=== PATIENT | female | born 1950 | race Caucasian/White ===

== ENCOUNTER 2023-02-06 15:54 | Inpatient (IN) ==
[2023-02-06] MEDS ORDERED: SODIUM CHLORIDE 0.9% 1000ML 1,000 ML IV STA (16:08)
[2023-02-06] MEDS ORDERED: METOPROLOL TARTRATE 25 MG TAB PO STA (16:24)
--- NOTE | 2023-02-06 16:30 | Emergency Department Note ---
Impression & Plan Hypertension, Acute pancreatitis, Erythema migrans (Lyme disease) ED Provider Note INFORMANT: Patient ED PROVIDER(S): Stevie Liriano MD CHIEF COMPLAINT: Illness PLAN: Disposition: Admitted Condition: Good Outpatient prescription management: none Referral: None MEDICAL DECISION MAKING: Patient presented because of complaints of illness. She had fever at the store but that has resolved. She has developed a bull's-eye rash in the right lateral abdomen. A work-up was initiated. She did have some lower abdominal discomfort on examination. She was concerned due to history of pancreatitis. Blood work and imaging ordered. Patient was hydrated. She was given her afternoon metoprolol dose as her blood pressure was high. Patient's blood pressure did improve although it did increase again she was given IV hydralazine. She was treated with IV Rocephin. Her blood work was concerning for a mild leukocytosis as well as an elevated lipase consistent with pancreatitis. CT imaging was performed and revealed the presence of pancreatitis. Patient's IV fluids were adjusted accordingly. Discussed further management in the hospital and she was in agreement. Consultation was made with Dr. Mckinney, [facility] hospitalist service. Case discussed diagnostics were reviewed. Patient was evaluated in the ER and admitted for further management Discussed with manager diabetes After review of the information above and other included data, I feel the patient requires admission. Triage Nursing notes reviewed and agree them. Vital Signs: reviewed and remarkable for hypertension Prior /Outside records reviewed: none Differential diagnosis: Lyme disease, tickborne illness, viral syndrome, pancreatitis, renal colic, UTI, appendicitis, diverticulitis, mesenteric ischemia, aortic pathology, infections, inflammatory bowel disease, PUD, biliary pathology, as well as other pathologies. Diagnostics, as interpreted by me: ECG: Twelve-lead ECG reveals a normal sinus rhythm at 82 bpm. Left axis deviation. No ST elevation or depression. No TWI. No PVCs. Cardiac Monitoring: Cardiac monitoring ordered by me: The patient was placed on continuous cardiac monitoring and observed. It revealed a normal sinus rhythm at 70 beats per minute without ectopy or evidence of dysrhythmia. Medical decision rules: none Imaging studies: I have CT scan is consistent with acute pancreatitis. I refer you to the EMR for further details. HPI: The patient is a 72year old female who presents to the Emergency Room with complaints of illness. This started a week ago and is initially described as f dalia and then development of a bull's-eye-like rash on the right lateral abdomen. The patient also notes the following associated symptoms, lower to mid abdominal pain today, abdominal bloating today, fatigue. The patient has taken Mylanta and Gas-X for relieving factors. Current pain is rated as 2/10. Patient noted after using the [id number] medications the abdominal symptoms nearly resolved. She was concerned as she has a history of pancreatitis. Patient does note that she is due for her afternoon metoprolol dose. Pt denies LOC, headache,diaphoresis, chest pain, breathing difficulties, nausea, vomiting, back pain, urinary symptoms, numbness,or other complaints. PAST MEDICAL HISTORY: See Below, hypertension PAST SURGICAL HISTORY: See Below, SOCIAL HISTORY: See Below, HOME MEDICATIONS: See Below ALLERGIES: See Below VITALS: See Below PHYSICAL EXAMINATION: GENERAL: Awake, alert, anxious-appearing, in no distress HENT: Normocephalic, atraumatic. Oropharynx unremarkable. EYES: Normal conjunctiva. Sclera non-icteric. NECK: Inspection normal. Non-tender. Supple. No nuchal rigidity. FROM. No masses. RESPIRATORY: Clear to auscultation. No wheezes. No rales. Normal respiratory effort. CARDIAC: Normal rate. Normal rhythm. No murmurs. No rubs. Extremities warm and well perfused. Pulses equal. No JVD. GI: Soft, non-distended. No tenderness to palpation. No rebound or guarding. No masses. RECTAL: Deferred. MUSCULOSKELETAL: Atraumatic. Chest examination reveals no tenderness. The back is symmetrical on inspection without obvious abnormality. There is no CVA tenderness to palpation. No joint edema. LOWER EXTREMITIES: Calves are equal size bilaterally and non-tender. No edema. No discoloration. NEURO: Normal sensorium. No sensory or motor deficits noted. SKIN: There is a round bull's-eye-like rash on the right lower lateral abdomen. No associated tenderness or fluctuance. No petechia, purpura, or jaundice noted. Past Med/Surg History Medical History (Updated 02/07/23 @ 01:43 by Stevie Liriano MD) Asthma Dyspareunia SOB (shortness of breath) Wheezing Surgical History (Updated 05/12/19 @ 13:20 by Brigitte Mitchell) H/O tooth extraction Hx of tubal ligation Family History Unknown Stroke COPD (chronic obstructive pulmonary disease) Coronary heart disease Lung disease Cancer Social History Smoking Status: Never smoker Second Hand Exposure: No; Do You Dip or Chew Tobacco: No; Tobacco Cessation Education Requested by Patient: No Hx Alcohol Use: No Hx Substance Use: No Preferred Language: Djiboutian Communication Ability: Effective Tablet Coater Required: No Beliefs That Will Affect Care: None Current Living Situation: Spouse Other Information That Helps Us Care for You: No Feels Safe at Home: Yes Safety Concerns: Feels Safe At This Time Assistive Devices: Glasses and Nebulizer Allergies Allergies Allergy/AdvReac Type Severity Reaction Status Date / Time Sulfa (Sulfonamide Allergy Unknown Verified 09/23/22 09:49 Antibiotics) Tetracyclines Allergy Unknown Verified 09/23/22 09:49 Home Meds Home Medications Medication Instructions Recorded Confirmed albuterol sulfate 2.5 mg/3 mL 2.5 mg inhalation Q4H PRN Other 12/21/19 02/06/23 (0.083 %) solution for nebulization ascorbate calcium (vitamin C) 500 500 mg PO DAILY 12/25/19 02/06/23 mg tablet omeprazole 40 mg capsule,delayed 40 mg PO DAILY 12/25/19 02/06/23 release calcium carbonate-magnesium oxide 1 tab PO DAILY 04/21/21 02/06/23 333 mg-167 mg tablet cholecalciferol (vitamin D3) 50 50 mcg PO DAILY 04/21/21 02/06/23 mcg (2,000 unit) capsule levothyroxine 75 mcg capsule 75 mcg PO DAILY 04/21/21 02/06/23 lysine 1,000 mg tablet 500 mg PO DAILY 04/21/21 02/06/23 zinc 50 mg tablet 50 mg PO DAILY 04/21/21 02/06/23 mecobalamin (vitamin B12) 1,000 1,000 mcg sublingual DAILY 09/23/22 02/06/23 mcg disintegrating tablet,sublingual metoprolol tartrate 25 mg tablet 12.5 mg PO BID 09/23/22 02/06/23 alprazolam 0.25 mg tablet 0.25 mg PO BID PRN Other 02/06/23 02/06/23 montelukast 10 mg tablet 10 mg PO DAILY 02/06/23 02/06/23 Previous Rx's Medication Instructions Recorded albuterol sulfate 90 mcg/actuation 2 puff inhalation Q6H PRN 10/02/22 aerosol inhaler (Ventolin HFA) shortness of breath or wheezing #8.5 grams fluticasone 250 mcg-salmeterol 50 1 inh inhalation BID #3 Inhalers 10/12/22 mcg/dose blistr powdr for inhalation (Advair Diskus) Results & Data (ED) Vital Signs Vital Signs - 24 hr 02/06/23 15:59 02/06/23 16:15 02/06/23 16:28 Temperature 36.9 C Temperature Source Temporal Artery Scan Pulse Rate 89 83 Pulse Rate [Right Finger] Pulse Rhythm [Right Finger] Pulse Strength [Right Finger] Respiratory Rate 18 Respiratory Effort / Characteristics Non-Labored Respiratory Depth Normal Respiratory Pattern Regular Blood Pressure 196/120 H Blood Pressure [Left Arm] Blood Pressure Mean 145 Blood Pressure Mean [Left Arm] Blood Pressure Position [Left Arm] Pulse Oximetry 98 98 Oxygen Delivery Method Room Air Room Air Sepsis Recent Fever Within 48 Hours No Sepsis New/Unexplained Change in Mental Status N/A Sepsis Action Taken by Nursing No Action Required 02/06/23 16:30 02/06/23 17:53 02/06/23 18:45 Temperature Temperature Source Pulse Rate Pulse Rate [Right Finger] 80 68 70 Pulse Rhythm [Right Finger] Regular Pulse Strength [Right Finger] Normal Respiratory Rate 17 18 19 Respiratory Effort / Characteristics Non-Labored Respiratory Depth Normal Respiratory Pattern Regular Blood Pressure Blood Pressure [Left Arm] 155/88 H 151/93 H 202/97 H Blood Pressure Mean Blood Pressure Mean [Left Arm] 110 112 132 Blood Pressure Position [Left Arm] Semi-fowlers Pulse Oximetry 97 96 97 Oxygen Delivery Method Room Air Room Air Room Air Sepsis Recent Fever Within 48 Hours Sepsis New/Unexplained Change in Mental Status Sepsis Action Taken by Nursing 02/06/23 19:27 02/06/23 20:08 Temperature Temperature Source Pulse Rate 70 Pulse Rate [Right Finger] 65 Pulse Rhythm [Right Finger] Regular Pulse Strength [Right Finger] Normal Respiratory Rate 17 Respiratory Effort / Characteristics Non-Labored Spontaneous Respiratory Depth Normal Respiratory Pattern Regular Blood Pressure Blood Pressure [Left Arm] 150/90 H Blood Pressure Mean Blood Pressure Mean [Left Arm] 110 Blood Pressure Position [Left Arm] Lying Pulse Oximetry 97 Oxygen Delivery Method Room Air Sepsis Recent Fever Within 48 Hours Sepsis New/Unexplained Change in Mental Status Sepsis Action Taken by Nursing Laboratory Data 02/06/23 16:10 02/06/23 16:10 Lab Results 02/06/23 02/06/23 02/06/23 Range/Units 16:10 16:10 16:10 WBC 14.36 H (4.8-10.8) K/ul RBC 4.36 (4.20-5.40) M/uL Hgb 15.0 (12.0-16.0) g/dl Hct 43.8 (37.0-47.0) % MCV 100.5 H (80.0-100.0) fL MCH 34.4 H (25.0-34.0) pg MCHC 34.2 (32.0-36.0) g/dL RDW Std Deviation 45.1 (36.4-46.3) fL RDW Coeff of Bi 12.0 (11.5-14.5) % Plt Count 303 (130-400) K/uL MPV 10.6 (9.4-12.4) fL Immature Gran % (Auto) 0.3 % Neut % (Auto) 73.9 % Lymph % (Auto) 20.1 % [place] % (Auto) 4.9 % Eos % (Auto) 0.5 % Baso % (Auto) 0.3 % Neut # (Auto) 10.62 H (1.40-6.50) K/uL Lymph # (Auto) 2.89 (1.2-3.4) K/uL [place] # (Auto) 0.70 H (0.11-0.59) K/uL Eos # (Auto) 0.07 (0-0.50) K/uL Baso # (Auto) 0.04 (0-0.2) K/uL Immature Gran # (Auto) 0.04 (0.01-0.20) K/uL Sodium 136 (136-145) mmol/L Potassium 4.0 (3.5-5.1) mmol/L Chloride 101 (98-107) mmol/L Carbon Dioxide 27 (21-32) mmol/L Anion Gap 8 (3-11) BUN 12 (6-23) mg/dl Creatinine 0.65 (0.6-1.2) mg/dl Est Cr Clr Drug Dosing 88.6 ml/min Est GFR ( Amer) 103.5 ml/min Est GFR (Non-Af Amer) 89.3 ml/min BUN/Creatinine Ratio 18.5 (10-20) Glucose 106 H (70-99(Fasting)) mg/dl Calcium 9.6 (8.6-10.3) mg/dl Total Bilirubin 0.5 (0.2-1.0) mg/dl AST 27 (13-39) U/L ALT 48 (7-52) U/L Alkaline Phosphatase 100 (34-104) U/L Troponin I High Sens 2.4 (0-14) pg/ml Total Protein 8.1 (6.0-8.3) gm/dl Albumin 4.6 (3.4-5.0) gm/dl Globulin 3.5 (2.5-4.0) gm/dl Albumin/Globulin Ratio 1.3 (0.9-2) Lipase 1792 H (11-82) U/L Urine Color Urine Appearance (Clear) Urine pH (4.5-7.5) Ur Specific [place] (1.000-1.030) Urine Protein (Negative) Urine Glucose (UA) (Negative) Urine Ketones (Negative) Urine Blood (Negative) Urine Nitrite (Negative) Urine Bilirubin (Negative) Urine Urobilinogen (Negative) Ur Leukocyte Esterase (Negative) Urine WBC (Auto) (0-5) /hpf Urine RBC (Auto) (0-4) /hpf U Hyaline Cast (Auto) (0-5) /lpf U Epithel Cells (Auto) (0-5) /lpf Urine Bacteria (Auto) (Negative) Anaplasma Smear See Comment Babesia Smear See Comment Lyme Disease IgG Ab Positive A (Negative) Lyme Disease IgM Ab Positive A (Negative) SARS-CoV-2, RNA, NAAT (NEGATIVE) 02/06/23 02/06/23 Range/Units 16:15 18:50 WBC (4.8-10.8) K/ul RBC (4.20-5.40) M/uL Hgb (12.0-16.0) g/dl Hct (37.0-47.0) % MCV (80.0-100.0) fL MCH (25.0-34.0) pg MCHC (32.0-36.0) g/dL RDW Std Deviation (36.4-46.3) fL RDW Coeff of Bi (11.5-14.5) % Plt Count (130-400) K/uL MPV (9.4-12.4) fL Immature Gran % (Auto) % Neut % (Auto) % Lymph % (Auto) % [place] % (Auto) % Eos % (Auto) % Baso % (Auto) % Neut # (Auto) (1.40-6.50) K/uL Lymph # (Auto) (1.2-3.4) K/uL [place] # (Auto) (0.11-0.59) K/uL Eos # (Auto) (0-0.50) K/uL Baso # (Auto) (0-0.2) K/uL Immature Gran # (Auto) (0.01-0.20) K/uL Sodium (136-145) mmol/L Potassium (3.5-5.1) mmol/L Chloride (98-107) mmol/L Carbon Dioxide (21-32) mmol/L Anion Gap (3-11) BUN (6-23) mg/dl Creatinine (0.6-1.2) mg/dl Est Cr Clr Drug Dosing ml/min Est GFR ( Amer) ml/min Est GFR (Non-Af Amer) ml/min BUN/Creatinine Ratio (10-20) Glucose (70-99(Fasting)) mg/dl Calcium (8.6-10.3) mg/dl Total Bilirubin (0.2-1.0) mg/dl AST (13-39) U/L ALT (7-52) U/L Alkaline Phosphatase (34-104) U/L Troponin I High Sens (0-14) pg/ml Total Protein (6.0-8.3) gm/dl Albumin (3.4-5.0) gm/dl Globulin (2.5-4.0) gm/dl Albumin/Globulin Ratio (0.9-2) Lipase (11-82) U/L Urine Color Yellow Urine Appearance Clear (Clear) Urine pH 6.5 (4.5-7.5) Ur Specific [place] 1.007 (1.000-1.030) Urine Protein Negative (Negative) Urine Glucose (UA) Negative (Negative) Urine Ketones Negative (Negative) Urine Blood 1+ H (Negative) Urine Nitrite Negative (Negative) Urine Bilirubin Negative (Negative) Urine Urobilinogen Negative (Negative) Ur Leukocyte Esterase 3+ H (Negative) Urine WBC (Auto) 10-30 H (0-5) /hpf Urine RBC (Auto) 0-4 (0-4) /hpf U Hyaline Cast (Auto) 0 (0-5) /lpf U Epithel Cells (Auto) >30 H (0-5) /lpf Urine Bacteria (Auto) Negative (Negative) Anaplasma Smear Babesia Smear Lyme Disease IgG Ab (Negative) Lyme Disease IgM Ab (Negative) SARS-CoV-2, RNA, NAAT NEGATIVE (NEGATIVE) Administered Medications Enoxaparin Sodium (Enoxaparin Inj 40 Mg/0.4 Ml Syr) 40 mg SQ Q24H TATIANA Stop: 03/08/23 21:59 Last Admin: 02/06/23 22:07 Dose: 40 mg Documented By: EKF Doxycycline Hyclate 100 mg/ (Dextrose) 110 mls @ 50 mls/hr IV Q12H TATIANA Stop: 02/16/23 21:21 Last Infusion: 02/07/23 00:20 Dose: 0 mls/hr Documented By: Admin: 02/06/23 22:07 Dose: 50 mls/hr Documented By: EKF Sodium Chloride (Nss 1000ml) 1,000 mls @ 200 mls/hr IV .Q5H TTAIANA Stop: 03/08/23 21:21 Last Admin: 02/06/23 21:52 Dose: 200 mls/hr Documented By: EKF Metoprolol Tartrate (Metoprolol Tartrate 25 Mg Tab) 12.5 mg PO BID TATIANA Stop: 03/08/23 21:21 Last Admin: 02/06/23 22:08 Dose: 12.5 mg Documented By: EKF Discontinued Medications Hydralazine HCl (Hydralazine Hcl 20 Mg/Ml Vial) 5 mg IV NOW ONE Stop: 02/06/23 19:18 Last Admin: 02/06/23 19:23 Dose: 5 mg Documented By: KAF Sodium Chloride (Nss 1000ml) 1,000 mls @ 125 mls/hr IV .Q8H STA Stop: 02/07/23 00:07 Last Infusion: 02/06/23 18:41 Dose: 0 mls/hr Documented By: Admin: 02/06/23 16:30 Dose: 125 mls/hr Documented By: KALEB Ceftriaxone Sodium (Rocephin) 2,000 mg in 70 mls @ 140 mls/hr IV NOW STA Stop: 02/06/23 18:04 Last Infusion: 02/06/23 18:40 Dose: 0 mls/hr Documented By: Admin: 02/06/23 17:48 Dose: 140 mls/hr Documented By: MALKA Sodium Chloride (Nss 1000ml) 1,000 mls @ 200 mls/hr IV .Q5H TATIANA Stop: 03/08/23 18:44 Last Infusion: 02/06/23 21:45 Dose: 0 mls/hr Documented By: Admin: 02/06/23 19:03 Dose: 200 mls/hr Documented By: MECHELLE Ioversol (Optiray 320 100ml) 90 ml IV ONCE ONE Stop: 02/06/23 18:29 Last Admin: 02/06/23 18:28 Dose: 90 ml Documented By: ALEJO Metoprolol Tartrate (Metoprolol Tartrate 25 Mg Tab) 12.5 mg PO NOW STA Stop: 02/06/23 16:25 Last Admin: 02/06/23 16:30 Dose: 12.5 mg Documented By: KALEB Imaging Data Radiologist's Impression: Abdomen/Pelvis CT 02/06/23 16:51 CT OF THE ABDOMEN AND PELVIS WITH CONTRAST CLINICAL HISTORY: Lower abdominal pain, fever. History of of pancreatitis. COMPARISON STUDY: None. TECHNIQUE: Following IV administration of 90 mL of Optiray, axial images of the abdomen and pelvis were obtained from the lung bases to the proximal femurs. Images were reviewed in the axial, sagittal, and coronal planes. IV contrast was administered without complication. Automated exposure control was utilized for the study. A dose lowering technique was utilized adhering to the principles of ALARA. CT DOSE: 1354.44 mGy.cm FINDINGS: Lung bases are unremarkable. No pneumatosis, free air or portal venous gas is present. There are no hepatic lesions. There is no biliary ductal dilatation. Possible hepatic steatosis. The spleen and adrenal glands are unremarkable. There are bilateral renal parapelvic cysts. Moderate peripancreatic fluid and stranding is noted. The gland is edematous. No CT evidence for gland necrosis. No peripancreatic fluid collections are present. Major vasculature is patent. The appendix is surgically absent. Colonic diverticulosis is noted. There is no evidence for acute diverticulitis. There is no lymphadenopathy. Caliber and wall thickness of small and large bowel are normal. IMPRESSION: 1. Moderate peripancreatic fluid and stranding consistent with acute pancreatitis. No evidence for gland necrosis. No peripancreatic fluid collections. 2. No bowel obstruction. No bowel wall thickening. Colonic diverticulosis without evidence for acute diverticulitis. ACT 112: Negative or not required by law. Electronically signed by: Saravanan Breen M.D. 02/06/2023 6:53 PM Discharge Plan Visit Data Chief Complaint: Illness Stated Complaint: BULLSEYE RASH, ABDOMINAL PAIN - HX PANCREATITIS ED Provider: Stevie Liriano Discharge Problem: Hypertension, Acute pancreatitis, Erythema migrans (Lyme disease) Patient Disposition: Admitted As Inpatient Discharge Instructions Interventions: ED Discharge Assessment Last Done: 02/06/23 20:57
[2023-02-06 16:40] LABS: Appearance Urine Clear (Clear); Bacteria Urine Automated Negative (Negative); Bilirubin Urine Negative (Negative); Blood Urine 1+ (Negative); Cast Urine Automated 0 /lpf (0-5); Color Urine Yellow; Epithelial Cell Urine Auto >30 /lpf (0-5); Glucose Urine UA Negative (Negative); Ketones Urine Negative (Negative); Leukocyte Esterase Urine 3+ (Negative); Nitrite Urine Negative (Negative); Protein Urine Negative (Negative); RBC Urine Automated 0-4 /hpf (0-4); Specific Gravity Urine 1.007 (1.000-1.030); Urobilinogen Urine Negative (Negative); pH Urine 6.5 (4.5-7.5)
[2023-02-06 17:12] LABS: Basophils # (auto) 0.04 K/uL (0-0.2); Basophils % (auto) 0.3 %; Eosinophils # (auto) 0.07 K/uL (0-0.50); Eosinophils % (auto) 0.5 %; Hematocrit (blood only) 43.8 % (37.0-47.0); Immature Granulocytes # (auto) 0.04 K/uL (0.01-0.20); Immature Granulocytes % (auto) 0.3 %; Lymphocytes # (auto) 2.89 K/uL (1.2-3.4); Lymphocytes % (auto) 20.1 %; Mean Corpuscular Hemoglobin 34.4 pg (25.0-34.0); Mean Corpuscular Hgb Conc 34.2 g/dL (32.0-36.0); Mean Corpuscular Volume 100.5 fL (80.0-100.0); Mean Platelet Volume 10.6 fL (9.4-12.4); Monocytes % (auto) 4.9 %; Neutrophils # (auto) 10.62 K/uL (1.40-6.50); Neutrophils % (auto) 73.9 %; Platelet Count 303 K/uL (130-400); RDW Standard Deviation 45.1 fL (36.4-46.3); Red Blood Count 4.36 M/uL (4.20-5.40); White Blood Count 14.36 K/ul (4.8-10.8)
[2023-02-06 17:18] LABS: BUN Creatinine Ratio 18.5 (10-20); Calcium 9.6 mg/dl (8.6-10.3); Creatinine Clr Calc Pharmacy 88.6 ml/min; Est GFR (African American) 103.5 ml/min; Est GFR (Non-African American) 89.3 ml/min
[2023-02-06 17:24] LABS: Troponin I High Sensitivity 2.4 pg/ml (0-14)
[2023-02-06] MEDS ORDERED: cefTRIAXone SODIUM 2,000 MG/70 ML BAG IV STA (17:35)
[2023-02-06] MEDS ORDERED: OPTIRAY 320 100ml IV ONE (18:28)
[2023-02-06] MEDS ORDERED: SODIUM CHLORIDE 0.9% 1000ML 1,000 ML IV SCH (18:45)
--- NOTE | 2023-02-06 18:55 | CT Scan Report ---
CT OF THE ABDOMEN AND PELVIS WITH CONTRAST CLINICAL HISTORY: Lower abdominal pain, fever. History of of pancreatitis. COMPARISON STUDY: None. TECHNIQUE: Following IV administration of 90 mL of Optiray, axial images of the abdomen and pelvis we re obtained from the lung bases to the proximal femurs. Images were reviewed in the axial, sagittal, and coronal planes. IV contrast was administered without complication. Automated exposure control wa s utilized for the study. A dose lowering technique was utilized adhering to the principles of ALARA . CT DOSE: 1354.44 mGy.cm FINDINGS: Lung bases are unremarkable. No pneumatosis, free air or portal venous gas is present. Ther e are no hepatic lesions. There is no biliary ductal dilatation. Possible hepatic steatosis. The sple en and adrenal glands are unremarkable. There are bilateral renal parapelvic cysts. Moderate peripanc reatic fluid and stranding is noted. The gland is edematous. No CT evidence for gland necrosis. No pe ripancreatic fluid collections are present. Major vasculature is patent. The appendix is surgically a bsent. Colonic diverticulosis is noted. There is no evidence for acute diverticulitis. There is no ly mphadenopathy. Caliber and wall thickness of small and large bowel are normal. IMPRESSION: 1. Moderate peripancreatic fluid and stranding consistent with acute pancreatitis. No evidence for gl and necrosis. No peripancreatic fluid collections. 2. No bowel obstruction. No bowel wall thickening. Colonic diverticulosis without evidence for acute diverticulitis. ACT 112: Negative or not required by law. Electronically signed by: Saravanan Breen M.D. 02/06/2023 6:53 PM
[2023-02-06 19:06] LABS: Albumin Globulin Ratio 1.3 (0.9-2); Albumin Level 4.6 gm/dl (3.4-5.0); Bilirubin,Total 0.5 mg/dl (0.2-1.0); Globulin 3.5 gm/dl (2.5-4.0); Total Protein 8.1 gm/dl (6.0-8.3)
[2023-02-06] MEDS ORDERED: hydrALAZINE HCL 20 MG/ML VIAL IV ONE (19:17)
[2023-02-06 19:35] LABS: Lyme Ab IgG w/WB Rflx Positive (Negative)
[2023-02-06 19:36] LABS: Lyme Ab IgM w/WB Rflx Positive (Negative)
--- NOTE | 2023-02-06 20:46 | History & Physical Report ---
Date of Service February 06, 2023 Assessment & Plan (1) Acute pancreatitis: Plan: 72-year-old female presents with abdominal pain and erythema migrans and found to have acute pancreatitis and Lyme disease and also UTI. Acute pancreatitis Had history of pancreatitis after COVID infection in the recent past. Twice as per patient. We will keep her n.p.o., aggressive IV fluids normal saline 200 mL/h. Pain control. We will get gallbladder ultrasound Consult GI in a.m. for further recommendations. Lyme disease Lyme screen positive As erythema migrans rash in the right flank region Started on Rocephin and doxycycline. We will monitor the response Rash in abdomen and lower extremities Small blotches of erythematous rash on abdomen and lower extremities Possible from Lyme disease Antibiotics as able We will monitor the response Possible UTI On Rocephin We will follow the cultures Prediabetes We will follow HbA1c levels Hypothyroidism On Synthyroid Intermittent asthma Home inhalers and Singulair Currently stable Anxiety on alprazolam as needed Hypertension On metoprolol we will monitor the blood pressure GERD on omeprazole DVT prophylaxis Lovenox Disposition monitor Monitor med/telemetry for now Full code (2) Erythema migrans (Lyme disease): (3) UTI (urinary tract infection): History of Present Illness Chief Complaint: Acute pancreatitis, Lyme disease and UTI Primary Care Provider: Arminda Thornton MD 72-year-old male with past medical history significant for hypothyroidism, prediabetes, intermittent asthma, hypertension, GERD, anxiety presents with abdominal discomfort and bull's-eye rash on the right flank region. Patient states she has fevers on and 30 January and last fever was on Wednesday. Fever was about 102 degrees. And she started up rash on the flank region on Wednesday. This seems to bull's-eye rash. She has noticed some blotches of rash in the legs. And today she also had abdominal pain. Patient says when she had COVID 3 weeks later she had pancreatitis. Second time also after some viral infection which she thinks COVID had again pancreatitis. So when she had abdominal pain today she was worried that she was having again pancreatitis and came to the ER. Currently abdominal pain is not bad. Denies any diarrhea or constipation or bloody or black stools. Normal bladder movements. Currently afebrile. Denies any chest pain or shortness of breath. Currently no nausea. Currently no headaches. No earache or runny nose or sore throat. Appetite is good. Resting comfortably and hemodynamically stable Past medical history as mentioned above Past surgical history appendectomy for benign tumor as per patient Allergies Allergy/AdvReac Type Severity Reaction Status Date / Time Sulfa (Sulfonamide Allergy Unknown Verified 09/23/22 09:49 Antibiotics) Tetracyclines Allergy Unknown Verified 09/23/22 09:49 Home Medications Medication Instructions Recorded Confirmed Type albuterol sulfate 2.5 mg/3 mL 2.5 mg inhalation Q4H PRN Other 12/21/19 02/06/23 History (0.083 %) solution for nebulization ascorbate calcium (vitamin C) 500 500 mg PO DAILY 12/25/19 02/06/23 History mg tablet omeprazole 40 mg capsule,delayed 40 mg PO DAILY 12/25/19 02/06/23 History release calcium carbonate-magnesium oxide 1 tab PO DAILY 04/21/21 02/06/23 History 333 mg-167 mg tablet cholecalciferol (vitamin D3) 50 50 mcg PO DAILY 04/21/21 02/06/23 History mcg (2,000 unit) capsule levothyroxine 75 mcg capsule 75 mcg PO DAILY 04/21/21 02/06/23 History lysine 1,000 mg tablet 500 mg PO DAILY 04/21/21 02/06/23 History zinc 50 mg tablet 50 mg PO DAILY 04/21/21 02/06/23 History mecobalamin (vitamin B12) 1,000 1,000 mcg sublingual DAILY 09/23/22 02/06/23 History mcg disintegrating tablet,sublingual metoprolol tartrate 25 mg tablet 12.5 mg PO BID 09/23/22 02/06/23 History albuterol sulfate 90 mcg/actuation 2 puff inhalation Q6H PRN 10/02/22 02/06/23 Rx aerosol inhaler (Ventolin HFA) shortness of breath or wheezing #8.5 grams fluticasone 250 mcg-salmeterol 50 1 inh inhalation BID #3 Inhalers 10/12/22 02/06/23 Rx mcg/dose blistr powdr for inhalation (Advair Diskus) alprazolam 0.25 mg tablet 0.25 mg PO BID PRN Other 02/06/23 02/06/23 History montelukast 10 mg tablet 10 mg PO DAILY 02/06/23 02/06/23 History Past Med/Surg History Medical History (Updated 02/06/23 @ 20:49 by Tyler Vaughan MD) Asthma Dyspareunia SOB (shortness of breath) Wheezing Surgical History (Updated 05/12/19 @ 13:20 by Brigitte Mitchell) H/O tooth extraction Hx of tubal ligation Family History Unknown Stroke COPD (chronic obstructive pulmonary disease) Coronary heart disease Lung disease Cancer Social History Smoking Status: Never smoker Preferred Language: Persian Feels Safe at Home: Yes Review of Systems Review of Systems: All systems reviewed & are unremarkable except as noted in Subjective Physical Exam Physical Exam: General- Not in distress Head- atraumatic Eyes- PERRL, EOMI, anicteric ENT- oropharynx clear Neck- supple, no JVD, no adenopathy, no thyromegaly; carotids +2/2, no bruits appreciated Lungs- clear to auscultation and percussion Heart- regular rhythm; no murmur, no gallop, no rub appreciated Abdomen- normal bowel sounds, soft,non tender no distension Extremities- no pretibial edema, no erythema seen Neuro- alert, oriented x 3; PERRL,Non focal Skin- bulls eye rash seen on right flank region. small erythematous botches seen on abdomen and legs Results & Data Results & Data Vital Signs (Past 12 Hours) Vital Signs Temp Pulse Pulse Resp BP BP Pulse Ox 02/06/23 20:08 70 02/06/23 19:27 65 17 150/90 H 97 02/06/23 18:45 70 19 202/97 H 97 02/06/23 17:53 68 18 151/93 H 96 02/06/23 16:30 80 17 155/88 H 97 02/06/23 16:28 98 02/06/23 16:15 83 02/06/23 15:59 36.9 C 89 18 196/120 H 98 O2 Del Method 02/06/23 20:08 02/06/23 19:27 Room Air 02/06/23 18:45 Room Air 02/06/23 17:53 Room Air 02/06/23 16:30 Room Air 02/06/23 16:28 Room Air 02/06/23 16:15 02/06/23 15:59 Room Air Diagnostic Findings Laboratory Results WBC 14.36 K/ul (4.8-10.8) H 02/06/23 16:10 RBC 4.36 M/uL (4.20-5.40) 02/06/23 16:10 Hgb 15.0 g/dl (12.0-16.0) 02/06/23 16:10 Hct 43.8 % (37.0-47.0) 02/06/23 16:10 MCV 100.5 fL (80.0-100.0) H 02/06/23 16:10 MCH 34.4 pg (25.0-34.0) H 02/06/23 16:10 MCHC 34.2 g/dL (32.0-36.0) 02/06/23 16:10 RDW Std Deviation 45.1 fL (36.4-46.3) 02/06/23 16:10 RDW Coeff of Bi 12.0 % (11.5-14.5) 02/06/23 16:10 Plt Count 303 K/uL (130-400) 02/06/23 16:10 MPV 10.6 fL (9.4-12.4) 02/06/23 16:10 Immature Gran % (Auto) 0.3 % 02/06/23 16:10 Neut % (Auto) 73.9 % 02/06/23 16:10 Lymph % (Auto) 20.1 % 02/06/23 16:10 [place] % (Auto) 4.9 % 02/06/23 16:10 Eos % (Auto) 0.5 % 02/06/23 16:10 Baso % (Auto) 0.3 % 02/06/23 16:10 Neut # (Auto) 10.62 K/uL (1.40-6.50) H 02/06/23 16:10 Lymph # (Auto) 2.89 K/uL (1.2-3.4) 02/06/23 16:10 [place] # (Auto) 0.70 K/uL (0.11-0.59) H 02/06/23 16:10 Eos # (Auto) 0.07 K/uL (0-0.50) 02/06/23 16:10 Baso # (Auto) 0.04 K/uL (0-0.2) 02/06/23 16:10 Immature Gran # (Auto) 0.04 K/uL (0.01-0.20) 02/06/23 16:10 Sodium 136 mmol/L (136-145) 02/06/23 16:10 Potassium 4.0 mmol/L (3.5-5.1) 02/06/23 16:10 Chloride 101 mmol/L (98-107) 02/06/23 16:10 Carbon Dioxide 27 mmol/L (21-32) 02/06/23 16:10 Anion Gap 8 (3-11) 02/06/23 16:10 BUN 12 mg/dl (6-23) 02/06/23 16:10 Creatinine 0.65 mg/dl (0.6-1.2) 02/06/23 16:10 Est Cr Clr Drug Dosing 88.6 ml/min 02/06/23 16:10 Est GFR ( Amer) 103.5 ml/min 02/06/23 16:10 Est GFR (Non-Af Amer) 89.3 ml/min 02/06/23 16:10 BUN/Creatinine Ratio 18.5 (10-20) 02/06/23 16:10 Glucose 106 mg/dl (70-99(Fasting)) H 02/06/23 16:10 Calcium 9.6 mg/dl (8.6-10.3) 02/06/23 16:10 Total Bilirubin 0.5 mg/dl (0.2-1.0) 02/06/23 16:10 AST 27 U/L (13-39) 02/06/23 16:10 ALT 48 U/L (7-52) 02/06/23 16:10 Alkaline Phosphatase 100 U/L (34-104) 02/06/23 16:10 Troponin I High Sens 2.4 pg/ml (0-14) 02/06/23 16:10 Total Protein 8.1 gm/dl (6.0-8.3) 02/06/23 16:10 Albumin 4.6 gm/dl (3.4-5.0) 02/06/23 16:10 Globulin 3.5 gm/dl (2.5-4.0) 02/06/23 16:10 Albumin/Globulin Ratio 1.3 (0.9-2) 02/06/23 16:10 Lipase 1792 U/L (11-82) H 02/06/23 16:10 Urine Color Yellow 02/06/23 16:15 Urine Appearance Clear (Clear) 02/06/23 16:15 Urine pH 6.5 (4.5-7.5) 02/06/23 16:15 Ur Specific [place] 1.007 (1.000-1.030) 02/06/23 16:15 Urine Protein Negative (Negative) 02/06/23 16:15 Urine Glucose (UA) Negative (Negative) 02/06/23 16:15 Urine Ketones Negative (Negative) 02/06/23 16:15 Urine Blood 1+ (Negative) H 02/06/23 16:15 Urine Nitrite Negative (Negative) 02/06/23 16:15 Urine Bilirubin Negative (Negative) 02/06/23 16:15 Urine Urobilinogen Negative (Negative) 02/06/23 16:15 Ur Leukocyte Esterase 3+ (Negative) H 02/06/23 16:15 Urine WBC (Auto) 10-30 /hpf (0-5) H 02/06/23 16:15 Urine RBC (Auto) 0-4 /hpf (0-4) 02/06/23 16:15 U Hyaline Cast (Auto) 0 /lpf (0-5) 02/06/23 16:15 U Epithel Cells (Auto) >30 /lpf (0-5) H 02/06/23 16:15 Urine Bacteria (Auto) Negative (Negative) 02/06/23 16:15 Anaplasma Smear See Comment 02/06/23 16:10 Babesia Smear See Comment 02/06/23 16:10 Lyme Disease IgG Ab Positive (Negative) A 02/06/23 16:10 Lyme Disease IgM Ab Positive (Negative) A 02/06/23 16:10 SARS-CoV-2, RNA, NAAT NEGATIVE (NEGATIVE) 02/06/23 18:50 Impressions Abdomen/Pelvis CT 02/06/23 16:51 CT OF THE ABDOMEN AND PELVIS WITH CONTRAST CLINICAL HISTORY: Lower abdominal pain, fever. History of of pancreatitis. COMPARISON STUDY: None. TECHNIQUE: Following IV administration of 90 mL of Optiray, axial images of the abdomen and pelvis were obtained from the lung bases to the proximal femurs. Images were reviewed in the axial, sagittal, and coronal planes. IV contrast was administered without complication. Automated exposure control was utilized for the study. A dose lowering technique was utilized adhering to the principles of ALARA. CT DOSE: 1354.44 mGy.cm FINDINGS: Lung bases are unremarkable. No pneumatosis, free air or portal venous gas is present. There are no hepatic lesions. There is no biliary ductal dilatation. Possible hepatic steatosis. The spleen and adrenal glands are unremarkable. There are bilateral renal parapelvic cysts. Moderate peripancreatic fluid and stranding is noted. The gland is edematous. No CT evidence for gland necrosis. No peripancreatic fluid collections are present. Major vasculature is patent. The appendix is surgically absent. Colonic diverticulosis is noted. There is no evidence for acute diverticulitis. There is no lymphadenopathy. Caliber and wall thickness of small and large bowel are normal. IMPRESSION: 1. Moderate peripancreatic fluid and stranding consistent with acute pancreatitis. No evidence for gland necrosis. No peripancreatic fluid collections. 2. No bowel obstruction. No bowel wall thickening. Colonic diverticulosis without evidence for acute diverticulitis. ACT 112: Negative or not required by law. Electronically signed by: Saravanan Breen M.D. 02/06/2023 6:53 PM ECG Additional Comments: ECG normal sinus rhythm with rate of [address] changes seen Code Status & VTE Plan VTE Prophylaxis Plan VTE Prophylaxis will be ordered: Yes
[2023-02-06] MEDS ORDERED: ACETAMINOPHEN 325 MG TAB PO PRN (21:22)
[2023-02-06] MEDS ORDERED: ALBUTEROL HFA 8 GM INHALER INH PRN (21:22)
[2023-02-06] MEDS ORDERED: ALPRAZolam 0.25 MG TABLET PO PRN (21:22)
[2023-02-06] MEDS ORDERED: POLYETHYLENE (MIRALAX) 17 GM PACK PO PRN (21:22)
[2023-02-06] MEDS ORDERED: ALBUTEROL 0.083% NEBU SOLN 3 ML VIAL INH PRN (21:22)
[2023-02-06] MEDS ORDERED: ONDANSETRON INJ 2 MG/ML 2 ML VIAL IV PRN (21:22)
[2023-02-06] MEDS ORDERED: MoRPHine SULFATE 2 MG/ML CARP IM PRN (21:22)
[2023-02-06] MEDS: SODIUM CHLORIDE 0.9% 1000ML 1,000 ML IV SCH (21:52)
[2023-02-06] MEDS: ENOXAPARIN INJ 40 MG/0.4 ML SYR SQ SCH ×2 (22:00→22:07)
[2023-02-06] MEDS: DOXYCYCLINE HYCLATE 100 MG in DEXTROSE 5% 100 ML IV SCH (22:07)
[2023-02-06] MEDS: METOPROLOL TARTRATE 25 MG TAB PO SCH (22:08)
[2023-02-07] MEDS: SODIUM CHLORIDE 0.9% 1000ML 1,000 ML IV SCH ×3 (04:49→17:00)
[2023-02-07] MEDS: LEVOTHYROXINE SODIUM 75 MCG TABLET PO SCH (05:07)
[2023-02-07 05:50] LABS: Basophils # (auto) 0.03 K/uL (0-0.2); Basophils % (auto) 0.3 %; Eosinophils # (auto) 0.13 K/uL (0-0.50); Eosinophils % (auto) 1.5 %; Hematocrit (blood only) 37.4 % (37.0-47.0); Hemoglobin 12.7 g/dl (12.0-16.0); Immature Granulocytes # (auto) 0.03 K/uL (0.01-0.20); Immature Granulocytes % (auto) 0.3 %; Lymphocytes % (auto) 24.4 %; Mean Corpuscular Hemoglobin 34.1 pg (25.0-34.0); Mean Corpuscular Volume 100.5 fL (80.0-100.0); Mean Platelet Volume 10.3 fL (9.4-12.4); Monocytes # (auto) 0.71 K/uL (0.11-0.59); Monocytes % (auto) 8.2 %; Neutrophils # (auto) 5.62 K/uL (1.40-6.50); Neutrophils % (auto) 65.3 %; Platelet Count 255 K/uL (130-400); RDW Coefficient of Variation 12.2 % (11.5-14.5); RDW Standard Deviation 45.7 fL (36.4-46.3); Red Blood Count 3.72 M/uL (4.20-5.40); White Blood Count 8.62 K/ul (4.8-10.8)
[2023-02-07 06:03] LABS: BUN Creatinine Ratio 15.1 (10-20); Calcium 8.4 mg/dl (8.6-10.3); Creatinine Clr Calc Pharmacy 108.7 ml/min; Est GFR (African American) 110.7 ml/min; Est GFR (Non-African American) 95.5 ml/min; Magnesium 1.9 mg/dl (1.7-2.4); Potassium 3.9 mmol/L (3.5-5.1)
--- NOTE | 2023-02-07 08:04 | Electrocardiogram Report ---
Test Reason : Blood Pressure : / mmHG Vent. Rate : 082 BPM Atrial Rate : 082 BPM P-R Int : 174 ms QRS Dur : 086 ms QT Int : 376 ms P-R-T Axes : 046 -39 049 degrees QTc Int : 439 ms Normal sinus rhythm Left axis deviation Normal ECG No previous ECGs available Confirmed by Juanjose Dunn ([id number]) on 02/07/2023 8:04:08 AM Referred By: REFERRED SELF Confirmed By:Juanjose Dunn
[2023-02-07] MEDS: FLUTICASONE/VILANTEROL 200/25MCG 14 PUFFS/INHALER INH SCH (08:15)
[2023-02-07] MEDS: CYANOCOBALAMIN (B-12) 500 MCG TABLET PO SCH (08:16)
[2023-02-07] MEDS: PANTOprazole 40 MG TAB PO SCH (08:16)
[2023-02-07] MEDS: CHOLECALCIFEROL 1,000 UNITS 25 MCG TAB PO SCH (08:16)
[2023-02-07] MEDS: MONTELUKAST SODIUM 10 MG TABLET PO SCH (08:16)
[2023-02-07] MEDS: METOPROLOL TARTRATE 25 MG TAB PO SCH ×2 (08:16→19:47)
[2023-02-07] MEDS: ASCORBIC ACID 500 MG TAB PO SCH (08:16)
--- NOTE | 2023-02-07 09:26 | Gastrointestinal Consultation ---
Date of Consultation February 07, 2023 Assessment & Plan (1) Acute pancreatitis: Pleasant lady with now her third episode of acute pancreatitis. She is basically symptom free now so I would start her on clear liquids when you are ready. I think at this point she deserves evaluation as it is her third spell. 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 I suggested she talk with her primary GI about EUS and/or MRCP as an outpatient. Other than this I don't have anything further to suggest. Will sign off. Please call if things change History of Present Illness Reason for Consultation: pancreatitis Attending Physician: Jn Anders MD History of Present Illness 72 year old female admitted with what she calls her third episode of pancreatitis. All of her episodes are usually mild and self limited. This episode came on yesterday with her normal symptoms but after she passed gas she felt fine. Today she is having no abdominal troubles. CT shows evidence of pancreatitis and her lipase is 1700. She sees a GI at [facility] but has not had any work up done. She had her last colonoscopy last year. She does not drink. She is in also with symptoms related to a tick bite. Allergies Allergy/AdvReac Type Severity Reaction Status Date / Time Sulfa (Sulfonamide Allergy Unknown Verified 09/23/22 09:49 Antibiotics) Tetracyclines Allergy Unknown Verified 09/23/22 09:49 Home Medications Medication Instructions Recorded Confirmed Type albuterol sulfate 2.5 mg/3 mL 2.5 mg inhalation Q4H PRN Other 12/21/19 02/06/23 History (0.083 %) solution for nebulization ascorbate calcium (vitamin C) 500 500 mg PO DAILY 12/25/19 02/06/23 History mg tablet omeprazole 40 mg capsule,delayed 40 mg PO DAILY 12/25/19 02/06/23 History release calcium carbonate-magnesium oxide 1 tab PO DAILY 04/21/21 02/06/23 History 333 mg-167 mg tablet cholecalciferol (vitamin D3) 50 50 mcg PO DAILY 04/21/21 02/06/23 History mcg (2,000 unit) capsule levothyroxine 75 mcg capsule 75 mcg PO DAILY 04/21/21 02/06/23 History lysine 1,000 mg tablet 500 mg PO DAILY 04/21/21 02/06/23 History zinc 50 mg tablet 50 mg PO DAILY 04/21/21 02/06/23 History mecobalamin (vitamin B12) 1,000 1,000 mcg sublingual DAILY 09/23/22 02/06/23 History mcg disintegrating tablet,sublingual metoprolol tartrate 25 mg tablet 12.5 mg PO BID 09/23/22 02/06/23 History albuterol sulfate 90 mcg/actuation 2 puff inhalation Q6H PRN 10/02/22 02/06/23 Rx aerosol inhaler (Ventolin HFA) shortness of breath or wheezing #8.5 grams fluticasone 250 mcg-salmeterol 50 1 inh inhalation BID #3 Inhalers 10/12/22 02/06/23 Rx mcg/dose blistr powdr for inhalation (Advair Diskus) alprazolam 0.25 mg tablet 0.25 mg PO BID PRN Other 02/06/23 02/06/23 History montelukast 10 mg tablet 10 mg PO DAILY 02/06/23 02/06/23 History Patient History Medical History Asthma Dyspareunia SOB (shortness of breath) Wheezing Surgical History H/O tooth extraction Hx of tubal ligation Family History Unknown Stroke COPD (chronic obstructive pulmonary disease) Coronary heart disease Lung disease Cancer Social History Smoking Status: Never smoker Second Hand Exposure: No; Do You Dip or Chew Tobacco: No; Tobacco Cessation Education Requested by Patient: No Hx Alcohol Use: No Hx Substance Use: No Preferred Language: Iraqi Communication Ability: Effective Siderographist Required: No Beliefs That Will Affect Care: None Current Living Situation: Spouse Other Information That Helps Us Care for You: No Feels Safe at Home: Yes Safety Concerns: Feels Safe At This Time Assistive Devices: Glasses and Nebulizer Review of Systems Review of Systems: All systems reviewed & are unremarkable except as noted in HPI & below Physical Exam Constitutional: WD/WN, vitals as above no acute distress Eyes: PERRL, conjunctivae normal, anicteric sclerae ENMT: external ear and nose normal, oropharynx normal Neck: trachea midline, no thyromegaly Respiratory: normal respiratory effort, lungs clear to auscultation Cardiovascular: RRR, no murmur, no edema Gastrointestinal (Abdomen): normal bowel sounds, soft, nontender, no hepatosplenomegaly Musculoskeletal: Extremities: no cyanosis and no clubbing Skin: no rashes, warm and dry Neurologic: PERRL, EOMI, accommodation nl, no face palsy, no dysarthria Psychiatric: Orientation: alert and oriented x 3 Results & Data Vital Signs (Past 12 Hours) Vital Signs Temp Pulse Resp BP Pulse Ox O2 Del Method 02/07/23 07:23 36.7 C 74 16 139/84 96 Room Air Laboratory Results 02/07/23 02/07/23 02/07/23 Range/Units 05:31 05:31 05:31 WBC 8.62 (4.8-10.8) K/ul RBC 3.72 L (4.20-5.40) M/uL Hgb 12.7 (12.0-16.0) g/dl Hct 37.4 (37.0-47.0) % MCV 100.5 H (80.0-100.0) fL MCH 34.1 H (25.0-34.0) pg MCHC 34.0 (32.0-36.0) g/dL RDW Std Deviation 45.7 (36.4-46.3) fL RDW Coeff of Bi 12.2 (11.5-14.5) % Plt Count 255 (130-400) K/uL MPV 10.3 (9.4-12.4) fL Immature Gran % (Auto) 0.3 % Neut % (Auto) 65.3 % Lymph % (Auto) 24.4 % [place] % (Auto) 8.2 % Eos % (Auto) 1.5 % Baso % (Auto) 0.3 % Neut # (Auto) 5.62 (1.40-6.50) K/uL Lymph # (Auto) 2.10 (1.2-3.4) K/uL [place] # (Auto) 0.71 H (0.11-0.59) K/uL Eos # (Auto) 0.13 (0-0.50) K/uL Baso # (Auto) 0.03 (0-0.2) K/uL Immature Gran # (Auto) 0.03 (0.01-0.20) K/uL Sodium 138 (136-145) mmol/L Potassium 3.9 (3.5-5.1) mmol/L Chloride 108 H (98-107) mmol/L Carbon Dioxide 24 (21-32) mmol/L Anion Gap 6 (3-11) BUN 8 (6-23) mg/dl Creatinine 0.53 L (0.6-1.2) mg/dl Est Cr Clr Drug Dosing 108.7 ml/min Est GFR ( Amer) 110.7 ml/min Est GFR (Non-Af Amer) 95.5 ml/min BUN/Creatinine Ratio 15.1 (10-20) Glucose 98 (70-99(Fasting)) mg/dl Estimat Average Glucose Pending Hemoglobin A1c Pending Calcium 8.4 L (8.6-10.3) mg/dl Magnesium 1.9 (1.7-2.4) mg/dl Total Bilirubin (0.2-1.0) mg/dl AST (13-39) U/L ALT (7-52) U/L Alkaline Phosphatase (34-104) U/L Troponin I High Sens (0-14) pg/ml Total Protein (6.0-8.3) gm/dl Albumin (3.4-5.0) gm/dl Globulin (2.5-4.0) gm/dl Albumin/Globulin Ratio (0.9-2) Triglycerides 103 (0-150) mg/dl Lipase (11-82) U/L Urine Color Urine Appearance (Clear) Urine pH (4.5-7.5) Ur Specific [place] (1.000-1.030) Urine Protein (Negative) Urine Glucose (UA) (Negative) Urine Ketones (Negative) Urine Blood (Negative) Urine Nitrite (Negative) Urine Bilirubin (Negative) Urine Urobilinogen (Negative) Ur Leukocyte Esterase (Negative) Urine WBC (Auto) (0-5) /hpf Urine RBC (Auto) (0-4) /hpf U Hyaline Cast (Auto) (0-5) /lpf U Epithel Cells (Auto) (0-5) /lpf Urine Bacteria (Auto) (Negative) Anaplasma Smear A. phagocytophilum DNA Babesia Smear Babesia microti DNA PCR Lyme Disease IgG Ab (Negative) Lyme IgG (Western Blot) Lyme IgG 18 kDa Band Lyme IgG 23 kDa Band Lyme IgG 28 kDa Band Lyme IgG 30 kDa Band Lyme IgG 39 kDa Band Lyme IgG 41 kDa Band Lyme IgG 45 kDa Band Lyme IgG 58 kDa Band Lyme IgG 66 kDa Band Lyme IgG 93 kDa Band Lyme IgM Ab (WB) Lyme Disease IgM Ab (Negative) Lyme IgM 23 kDa Band Lyme IgM 39 kDa Band Lyme IgM 41 kDa Band SARS-CoV-2, RNA, NAAT (NEGATIVE) 02/06/23 02/06/23 02/06/23 Range/Units 18:50 16:15 16:10 WBC (4.8-10.8) K/ul RBC (4.20-5.40) M/uL Hgb (12.0-16.0) g/dl Hct (37.0-47.0) % MCV (80.0-100.0) fL MCH (25.0-34.0) pg MCHC (32.0-36.0) g/dL RDW Std Deviation (36.4-46.3) fL RDW Coeff of Bi (11.5-14.5) % Plt Count (130-400) K/uL MPV (9.4-12.4) fL Immature Gran % (Auto) % Neut % (Auto) % Lymph % (Auto) % [place] % (Auto) % Eos % (Auto) % Baso % (Auto) % Neut # (Auto) (1.40-6.50) K/uL Lymph # (Auto) (1.2-3.4) K/uL [place] # (Auto) (0.11-0.59) K/uL Eos # (Auto) (0-0.50) K/uL Baso # (Auto) (0-0.2) K/uL Immature Gran # (Auto) (0.01-0.20) K/uL Sodium (136-145) mmol/L Potassium (3.5-5.1) mmol/L Chloride (98-107) mmol/L Carbon Dioxide (21-32) mmol/L Anion Gap (3-11) BUN (6-23) mg/dl Creatinine (0.6-1.2) mg/dl Est Cr Clr Drug Dosing ml/min Est GFR ( Amer) ml/min Est GFR (Non-Af Amer) ml/min BUN/Creatinine Ratio (10-20) Glucose (70-99(Fasting)) mg/dl Estimat Average Glucose Hemoglobin A1c Calcium (8.6-10.3) mg/dl Magnesium (1.7-2.4) mg/dl Total Bilirubin (0.2-1.0) mg/dl AST (13-39) U/L ALT (7-52) U/L Alkaline Phosphatase (34-104) U/L Troponin I High Sens (0-14) pg/ml Total Protein (6.0-8.3) gm/dl Albumin (3.4-5.0) gm/dl Globulin (2.5-4.0) gm/dl Albumin/Globulin Ratio (0.9-2) Triglycerides (0-150) mg/dl Lipase (11-82) U/L Urine Color Yellow Urine Appearance Clear (Clear) Urine pH 6.5 (4.5-7.5) Ur Specific [place] 1.007 (1.000-1.030) Urine Protein Negative (Negative) Urine Glucose (UA) Negative (Negative) Urine Ketones Negative (Negative) Urine Blood 1+ H (Negative) Urine Nitrite Negative (Negative) Urine Bilirubin Negative (Negative) Urine Urobilinogen Negative (Negative) Ur Leukocyte Esterase 3+ H (Negative) Urine WBC (Auto) 10-30 H (0-5) /hpf Urine RBC (Auto) 0-4 (0-4) /hpf U Hyaline Cast (Auto) 0 (0-5) /lpf U Epithel Cells (Auto) >30 H (0-5) /lpf Urine Bacteria (Auto) Negative (Negative) Anaplasma Smear A. phagocytophilum DNA Babesia Smear Babesia microti DNA PCR Lyme Disease IgG Ab (Negative) Lyme IgG (Western Blot) Pending Lyme IgG 18 kDa Band Pending Lyme IgG 23 kDa Band Pending Lyme IgG 28 kDa Band Pending Lyme IgG 30 kDa Band Pending Lyme IgG 39 kDa Band Pending Lyme IgG 41 kDa Band Pending Lyme IgG 45 kDa Band Pending Lyme IgG 58 kDa Band Pending Lyme IgG 66 kDa Band Pending Lyme IgG 93 kDa Band Pending Lyme IgM Ab (WB) Pending Lyme Disease IgM Ab (Negative) Lyme IgM 23 kDa Band Pending Lyme IgM 39 kDa Band Pending Lyme IgM 41 kDa Band Pending SARS-CoV-2, RNA, NAAT NEGATIVE (NEGATIVE) 02/06/23 02/06/23 02/06/23 Range/Units 16:10 16:10 16:10 WBC (4.8-10.8) K/ul RBC (4.20-5.40) M/uL Hgb (12.0-16.0) g/dl Hct (37.0-47.0) % MCV (80.0-100.0) fL MCH (25.0-34.0) pg MCHC (32.0-36.0) g/dL RDW Std Deviation (36.4-46.3) fL RDW Coeff of Bi (11.5-14.5) % Plt Count (130-400) K/uL MPV (9.4-12.4) fL Immature Gran % (Auto) % Neut % (Auto) % Lymph % (Auto) % [place] % (Auto) % Eos % (Auto) % Baso % (Auto) % Neut # (Auto) (1.40-6.50) K/uL Lymph # (Auto) (1.2-3.4) K/uL [place] # (Auto) (0.11-0.59) K/uL Eos # (Auto) (0-0.50) K/uL Baso # (Auto) (0-0.2) K/uL Immature Gran # (Auto) (0.01-0.20) K/uL Sodium (136-145) mmol/L Potassium (3.5-5.1) mmol/L Chloride (98-107) mmol/L Carbon Dioxide (21-32) mmol/L Anion Gap (3-11) BUN (6-23) mg/dl Creatinine (0.6-1.2) mg/dl Est Cr Clr Drug Dosing ml/min Est GFR ( Amer) ml/min Est GFR (Non-Af Amer) ml/min BUN/Creatinine Ratio (10-20) Glucose (70-99(Fasting)) mg/dl Estimat Average Glucose Hemoglobin A1c Calcium (8.6-10.3) mg/dl Magnesium (1.7-2.4) mg/dl Total Bilirubin (0.2-1.0) mg/dl AST (13-39) U/L ALT (7-52) U/L Alkaline Phosphatase (34-104) U/L Troponin I High Sens (0-14) pg/ml Total Protein (6.0-8.3) gm/dl Albumin (3.4-5.0) gm/dl Globulin (2.5-4.0) gm/dl Albumin/Globulin Ratio (0.9-2) Triglycerides (0-150) mg/dl Lipase (11-82) U/L Urine Color Urine Appearance (Clear) Urine pH (4.5-7.5) Ur Specific [place] (1.000-1.030) Urine Protein (Negative) Urine Glucose (UA) (Negative) Urine Ketones (Negative) Urine Blood (Negative) Urine Nitrite (Negative) Urine Bilirubin (Negative) Urine Urobilinogen (Negative) Ur Leukocyte Esterase (Negative) Urine WBC (Auto) (0-5) /hpf Urine RBC (Auto) (0-4) /hpf U Hyaline Cast (Auto) (0-5) /lpf U Epithel Cells (Auto) (0-5) /lpf Urine Bacteria (Auto) (Negative) Anaplasma Smear A. phagocytophilum DNA Pending Babesia Smear Babesia microti DNA PCR Pending Lyme Disease IgG Ab Positive A (Negative) Lyme IgG (Western Blot) Lyme IgG 18 kDa Band Lyme IgG 23 kDa Band Lyme IgG 28 kDa Band Lyme IgG 30 kDa Band Lyme IgG 39 kDa Band Lyme IgG 41 kDa Band Lyme IgG 45 kDa Band Lyme IgG 58 kDa Band Lyme IgG 66 kDa Band Lyme IgG 93 kDa Band Lyme IgM Ab (WB) Lyme Disease IgM Ab Positive A (Negative) Lyme IgM 23 kDa Band Lyme IgM 39 kDa Band Lyme IgM 41 kDa Band SARS-CoV-2, RNA, NAAT (NEGATIVE) 02/06/23 02/06/23 Range/Units 16:10 16:10 WBC 14.36 H (4.8-10.8) K/ul RBC 4.36 (4.20-5.40) M/uL Hgb 15.0 (12.0-16.0) g/dl Hct 43.8 (37.0-47.0) % MCV 100.5 H (80.0-100.0) fL MCH 34.4 H (25.0-34.0) pg MCHC 34.2 (32.0-36.0) g/dL RDW Std Deviation 45.1 (36.4-46.3) fL RDW Coeff of Bi 12.0 (11.5-14.5) % Plt Count 303 (130-400) K/uL MPV 10.6 (9.4-12.4) fL Immature Gran % (Auto) 0.3 % Neut % (Auto) 73.9 % Lymph % (Auto) 20.1 % [place] % (Auto) 4.9 % Eos % (Auto) 0.5 % Baso % (Auto) 0.3 % Neut # (Auto) 10.62 H (1.40-6.50) K/uL Lymph # (Auto) 2.89 (1.2-3.4) K/uL [place] # (Auto) 0.70 H (0.11-0.59) K/uL Eos # (Auto) 0.07 (0-0.50) K/uL Baso # (Auto) 0.04 (0-0.2) K/uL Immature Gran # (Auto) 0.04 (0.01-0.20) K/uL Sodium 136 (136-145) mmol/L Potassium 4.0 (3.5-5.1) mmol/L Chloride 101 (98-107) mmol/L Carbon Dioxide 27 (21-32) mmol/L Anion Gap 8 (3-11) BUN 12 (6-23) mg/dl Creatinine 0.65 (0.6-1.2) mg/dl Est Cr Clr Drug Dosing 88.6 ml/min Est GFR ( Amer) 103.5 ml/min Est GFR (Non-Af Amer) 89.3 ml/min BUN/Creatinine Ratio 18.5 (10-20) Glucose 106 H (70-99(Fasting)) mg/dl Estimat Average Glucose Hemoglobin A1c Calcium 9.6 (8.6-10.3) mg/dl Magnesium (1.7-2.4) mg/dl Total Bilirubin 0.5 (0.2-1.0) mg/dl AST 27 (13-39) U/L ALT 48 (7-52) U/L Alkaline Phosphatase 100 (34-104) U/L Troponin I High Sens 2.4 (0-14) pg/ml Total Protein 8.1 (6.0-8.3) gm/dl Albumin 4.6 (3.4-5.0) gm/dl Globulin 3.5 (2.5-4.0) gm/dl Albumin/Globulin Ratio 1.3 (0.9-2) Triglycerides (0-150) mg/dl Lipase 1792 H (11-82) U/L Urine Color Urine Appearance (Clear) Urine pH (4.5-7.5) Ur Specific [place] (1.000-1.030) Urine Protein (Negative) Urine Glucose (UA) (Negative) Urine Ketones (Negative) Urine Blood (Negative) Urine Nitrite (Negative) Urine Bilirubin (Negative) Urine Urobilinogen (Negative) Ur Leukocyte Esterase (Negative) Urine WBC (Auto) (0-5) /hpf Urine RBC (Auto) (0-4) /hpf U Hyaline Cast (Auto) (0-5) /lpf U Epithel Cells (Auto) (0-5) /lpf Urine Bacteria (Auto) (Negative) Anaplasma Smear See Comment A. phagocytophilum DNA Babesia Smear See Comment Babesia microti DNA PCR Lyme Disease IgG Ab (Negative) Lyme IgG (Western Blot) Lyme IgG 18 kDa Band Lyme IgG 23 kDa Band Lyme IgG 28 kDa Band Lyme IgG 30 kDa Band Lyme IgG 39 kDa Band Lyme IgG 41 kDa Band Lyme IgG 45 kDa Band Lyme IgG 58 kDa Band Lyme IgG 66 kDa Band Lyme IgG 93 kDa Band Lyme IgM Ab (WB) Lyme Disease IgM Ab (Negative) Lyme IgM 23 kDa Band Lyme IgM 39 kDa Band Lyme IgM 41 kDa Band SARS-CoV-2, RNA, NAAT (NEGATIVE) Diagnostic Findings Abdomen/Pelvis CT 02/06/23 16:51 CT OF THE ABDOMEN AND PELVIS WITH CONTRAST CLINICAL HISTORY: Lower abdominal pain, fever. History of of pancreatitis. COMPARISON STUDY: None. TECHNIQUE: Following IV administration of 90 mL of Optiray, axial images of the abdomen and pelvis were obtained from the lung bases to the proximal femurs. Images were reviewed in the axial, sagittal, and coronal planes. IV contrast was administered without complication. Automated exposure control was utilized for the study. A dose lowering technique was utilized adhering to the principles of ALARA. CT DOSE: 1354.44 mGy.cm FINDINGS: Lung bases are unremarkable. No pneumatosis, free air or portal venous gas is present. There are no hepatic lesions. There is no biliary ductal dilatation. Possible hepatic steatosis. The spleen and adrenal glands are unremarkable. There are bilateral renal parapelvic cysts. Moderate peripancreatic fluid and stranding is noted. The gland is edematous. No CT evidence for gland necrosis. No peripancreatic fluid collections are present. Major vasculature is patent. The appendix is surgically absent. Colonic diverticulosis is noted. There is no evidence for acute diverticulitis. There is no lymphadenopathy. Caliber and wall thickness of small and large bowel are normal. IMPRESSION: 1. Moderate peripancreatic fluid and stranding consistent with acute pancreatitis. No evidence for gland necrosis. No peripancreatic fluid collections. 2. No bowel obstruction. No bowel wall thickening. Colonic diverticulosis without evidence for acute diverticulitis. ACT 112: Negative or not required by law. Electronically signed by: Saravanan Breen M.D. 02/06/2023 6:53 PM
[2023-02-07] MEDS: DOXYCYCLINE HYCLATE 100 MG in DEXTROSE 5% 100 ML IV SCH ×2 (10:08→21:25)
--- NOTE | 2023-02-07 15:35 | Hospitalist Progress Note ---
Date of Service February 07, 2023 Assessment & Plan (1) Acute pancreatitis: Plan: 72-year-old female presents with abdominal pain and erythema migrans and found to have acute pancreatitis and Lyme disease and also UTI. Acute pancreatitis Third episode of acute pancreatitis as per patient. Had history of pancreatitis after COVID infection in the recent past. Twice as per patient. No history of gallstone, no history of alcohol intake. Triglycerides within normal limits. Presented with abdominal pain in epigastric region. Lipase elevated. CT abdomen pelvis personally reviewed; moderate peripancreatic fluid and stranding consistent with acute pancreatitis. Lyme disease Lyme screen positive As erythema migrans rash in the right flank region Started on Rocephin and doxycycline. We will monitor the response Rash in abdomen and lower extremities Small blotches of erythematous rash on abdomen and lower extremities Possible from Lyme disease Antibiotics as able We will monitor the response Possible UTI On Rocephin Urine culture shows pinpoint growth Prediabetes We will follow HbA1c levels Hypothyroidism On Synthyroid Intermittent asthma Home inhalers and Singulair Currently stable Anxiety on alprazolam as needed Hypertension On metoprolol we will monitor the blood pressure GERD on omeprazole DVT prophylaxis Lovenox Full code Time spent evaluating patient, direct bedside care, chart review, placing orders, interpretation of diagnostic studies, discussion with consultants, patient, and family members, as well as other required patient management activities is 60 minutes. Please note the above document was generated using voice recognition software. It may contain grammatical, syntax or spelling errors. Any formal questions or concerns about the content, text or information contained within the body of this dictation should be directly addressed to the provider for clarification (2) Erythema migrans (Lyme disease): (3) UTI (urinary tract infection): Admission and Anticipated Discharge Date Admission Date: February 06, 2023 Subjective Patient seen and examined at bedside. Reports mild abdominal pain. Denies fever or chills. Review of Systems Review of Systems: All systems reviewed & are unremarkable except as noted in Subjective Physical Exam Physical Exam: Constitutional: WD/WN, vitals as above, NAD, sitting up in bed, pleasant, conversing easily Respiratory: normal respiratory effort, lungs clear to auscultation, no wheeze, rales, rhonchi. Normal insp/exp effort, no accessory muscle use Cardiovascular: RRR, no murmur, no edema Vessels: no JVD or carotid bruit Chest: normal inspection of chest Abdomen: Mild tenderness present in epigastric region. Musculoskeletal: no cyanosis or clubbing, extremities motor strength 5/5 Skin: bulls eye rash seen on right flank region. small erythematous botches seen on abdomen and legs Neurologic: PERRL, EOMI, accommodation nl, no face palsy, no dysarthria CN's II- XI intact bilaterally and moves all extremities Psychiatric: A+Ox3, euthymic affect Results & Data Results & Data Vital Signs (Past 12 Hours) Vital Signs Temp Pulse Resp BP Pulse Ox O2 Del Method 02/07/23 14:44 36.9 C 69 17 141/83 H 97 Room Air 02/07/23 07: 36.7 C 74 16 139/84 96 Room Air Laboratory Results Laboratory Results WBC 8.62 K/ul (4.8-10.8) 02/07/23 05:31 RBC 3.72 M/uL (4.20-5.40) L 02/07/23 05:31 Hgb 12.7 g/dl (12.0-16.0) 02/07/23 05:31 Hct 37.4 % (37.0-47.0) 02/07/23 05:31 MCV 100.5 fL (80.0-100.0) H 02/07/23 05:31 MCH 34.1 pg (25.0-34.0) H 02/07/23 05:31 MCHC 34.0 g/dL (32.0-36.0) 02/07/23 05:31 RDW Std Deviation 45.7 fL (36.4-46.3) 02/07/23 05:31 RDW Coeff of Bi 12.2 % (11.5-14.5) 02/07/23 05:31 Plt Count 255 K/uL (130-400) 02/07/23 05:31 MPV 10.3 fL (9.4-12.4) 02/07/23 05:31 Immature Gran % (Auto) 0.3 % 02/07/23 05:31 Neut % (Auto) 65.3 % 02/07/23 05:31 Lymph % (Auto) 24.4 % 02/07/23 05:31 [place] % (Auto) 8.2 % 02/07/23 05:31 Eos % (Auto) 1.5 % 02/07/23 05:31 Baso % (Auto) 0.3 % 02/07/23 05:31 Neut # (Auto) 5.62 K/uL (1.40-6.50) 02/07/23 05:31 Lymph # (Auto) 2.10 K/uL (1.2-3.4) 02/07/23 05:31 [place] # (Auto) 0.71 K/uL (0.11-0.59) H 02/07/23 05:31 Eos # (Auto) 0.13 K/uL (0-0.50) 02/07/23 05:31 Baso # (Auto) 0.03 K/uL (0-0.2) 02/07/23 05:31 Immature Gran # (Auto) 0.03 K/uL (0.01-0.20) 02/07/23 05:31 Sodium 138 mmol/L (136-145) 02/07/23 05:31 Potassium 3.9 mmol/L (3.5-5.1) 02/07/23 05:31 Chloride 108 mmol/L (98-107) H 02/07/23 05:31 Carbon Dioxide 24 mmol/L (21-32) 02/07/23 05:31 Anion Gap 6 (3-11) 02/07/23 05:31 BUN 8 mg/dl (6-23) 02/07/23 05:31 Creatinine 0.53 mg/dl (0.6-1.2) L 02/07/23 05:31 Est Cr Clr Drug Dosing 108.7 ml/min 02/07/23 05:31 Est GFR ( Amer) 110.7 ml/min 02/07/23 05:31 Est GFR (Non-Af Amer) 95.5 ml/min 02/07/23 05:31 BUN/Creatinine Ratio 15.1 (10-20) 02/07/23 05:31 Glucose 98 mg/dl (70-99(Fasting)) 02/07/23 05:31 Calcium 8.4 mg/dl (8.6-10.3) L 02/07/23 05:31 Magnesium 1.9 mg/dl (1.7-2.4) 02/07/23 05:31 Total Bilirubin 0.5 mg/dl (0.2-1.0) 02/06/23 16:10 AST 27 U/L (13-39) 02/06/23 16:10 ALT 48 U/L (7-52) 02/06/23 16:10 Alkaline Phosphatase 100 U/L (34-104) 02/06/23 16:10 Troponin I High Sens 2.4 pg/ml (0-14) 02/06/23 16:10 Total Protein 8.1 gm/dl (6.0-8.3) 02/06/23 16:10 Albumin 4.6 gm/dl (3.4-5.0) 02/06/23 16:10 Globulin 3.5 gm/dl (2.5-4.0) 02/06/23 16:10 Albumin/Globulin Ratio 1.3 (0.9-2) 02/06/23 16:10 Triglycerides 103 mg/dl (0-150) 02/07/23 05:31 Lipase 1792 U/L (11-82) H 02/06/23 16:10 Urine Color Yellow 02/06/23 16:15 Urine Appearance Clear (Clear) 02/06/23 16:15 Urine pH 6.5 (4.5-7.5) 02/06/23 16:15 Ur Specific [place] 1.007 (1.000-1.030) 02/06/23 16:15 Urine Protein Negative (Negative) 02/06/23 16:15 Urine Glucose (UA) Negative (Negative) 02/06/23 16:15 Urine Ketones Negative (Negative) 02/06/23 16:15 Urine Blood 1+ (Negative) H 02/06/23 16:15 Urine Nitrite Negative (Negative) 02/06/23 16:15 Urine Bilirubin Negative (Negative) 02/06/23 16:15 Urine Urobilinogen Negative (Negative) 02/06/23 16:15 Ur Leukocyte Esterase 3+ (Negative) H 02/06/23 16:15 Urine WBC (Auto) 10-30 /hpf (0-5) H 02/06/23 16:15 Urine RBC (Auto) 0-4 /hpf (0-4) 02/06/23 16:15 U Hyaline Cast (Auto) 0 /lpf (0-5) 02/06/23 16:15 U Epithel Cells (Auto) >30 /lpf (0-5) H 02/06/23 16:15 Urine Bacteria (Auto) Negative (Negative) 02/06/23 16:15 Anaplasma Smear See Comment 02/06/23 16:10 Babesia Smear See Comment 02/06/23 16:10 Lyme Disease IgG Ab Positive (Negative) A 02/06/23 16:10 Lyme Disease IgM Ab Positive (Negative) A 02/06/23 16:10 SARS-CoV-2, RNA, NAAT NEGATIVE (NEGATIVE) 02/06/23 18:50 Impressions Abdomen/Pelvis CT 02/06/23 16:51 CT OF THE ABDOMEN AND PELVIS WITH CONTRAST CLINICAL HISTORY: Lower abdominal pain, fever. History of of pancreatitis. COMPARISON STUDY: None. TECHNIQUE: Following IV administration of 90 mL of Optiray, axial images of the abdomen and pelvis were obtained from the lung bases to the proximal femurs. Images were reviewed in the axial, sagittal, and coronal planes. IV contrast was administered without complication. Automated exposure control was utilized for the study. A dose lowering technique was utilized adhering to the principles of ALARA. CT DOSE: 1354.44 mGy.cm FINDINGS: Lung bases are unremarkable. No pneumatosis, free air or portal venous gas is present. There are no hepatic lesions. There is no biliary ductal dilatation. Possible hepatic steatosis. The spleen and adrenal glands are unremarkable. There are bilateral renal parapelvic cysts. Moderate peripancreatic fluid and stranding is noted. The gland is edematous. No CT evidence for gland necrosis. No peripancreatic fluid collections are present. Major vasculature is patent. The appendix is surgically absent. Colonic diverticulosis is noted. There is no evidence for acute diverticulitis. There is no lymphadenopathy. Caliber and wall thickness of small and large bowel are normal. IMPRESSION: 1. Moderate peripancreatic fluid and stranding consistent with acute pancreatitis. No evidence for gland necrosis. No peripancreatic fluid collections. 2. No bowel obstruction. No bowel wall thickening. Colonic diverticulosis without evidence for acute diverticulitis. ACT 112: Negative or not required by law. Electronically signed by: Saravanan Breen M.D. 02/06/2023 6:53 PM
[2023-02-07] MEDS ORDERED: cefTRIAXone SODIUM 2,000 MG in DEXTROSE 5% 50 ML IV SCH (18:00)
[2023-02-07] MEDS: ENOXAPARIN INJ 40 MG/0.4 ML SYR SQ SCH (21:29)
[2023-02-08] MEDS: LEVOTHYROXINE SODIUM 75 MCG TABLET PO SCH (05:35)
[2023-02-08 07:26] LABS: Estimated Average Glucose 114 mg/dl; Hemoglobin A1C 5.6 % (4.5-5.6)
[2023-02-08 07:51] LABS: Basophils # (auto) 0.06 K/uL (0-0.2); Basophils % (auto) 0.7 %; Eosinophils # (auto) 0.23 K/uL (0-0.50); Eosinophils % (auto) 2.7 %; Hematocrit (blood only) 37.9 % (37.0-47.0); Immature Granulocytes # (auto) 0.03 K/uL (0.01-0.20); Immature Granulocytes % (auto) 0.4 %; Lymphocytes # (auto) 2.13 K/uL (1.2-3.4); Mean Corpuscular Hemoglobin 34.4 pg (25.0-34.0); Mean Corpuscular Hgb Conc 34.3 g/dL (32.0-36.0); Mean Corpuscular Volume 100.3 fL (80.0-100.0); Monocytes # (auto) 0.74 K/uL (0.11-0.59); Monocytes % (auto) 8.7 %; Neutrophils # (auto) 5.33 K/uL (1.40-6.50); Neutrophils % (auto) 62.5 %; Platelet Count 292 K/uL (130-400); RDW Coefficient of Variation 12.1 % (11.5-14.5); RDW Standard Deviation 44.7 fL (36.4-46.3); Red Blood Count 3.78 M/uL (4.20-5.40); White Blood Count 8.52 K/ul (4.8-10.8)
[2023-02-08 08:06] LABS: Calcium 8.9 mg/dl (8.6-10.3); Creatinine Clr Calc Pharmacy 108.7 ml/min; Est GFR (African American) 110.7 ml/min; Est GFR (Non-African American) 95.5 ml/min; Potassium 4.2 mmol/L (3.5-5.1)
[2023-02-08] MEDS: FLUTICASONE/VILANTEROL 200/25MCG 14 PUFFS/INHALER INH SCH (08:49)
[2023-02-08] MEDS: ASCORBIC ACID 500 MG TAB PO SCH (08:49)
[2023-02-08] MEDS: CYANOCOBALAMIN (B-12) 500 MCG TABLET PO SCH (08:49)
[2023-02-08] MEDS: METOPROLOL TARTRATE 25 MG TAB PO SCH (08:49)
[2023-02-08] MEDS: PANTOprazole 40 MG TAB PO SCH (08:50)
[2023-02-08] MEDS: MONTELUKAST SODIUM 10 MG TABLET PO SCH (08:50)
[2023-02-08] MEDS: CHOLECALCIFEROL 1,000 UNITS 25 MCG TAB PO SCH (08:50)
[2023-02-08] MEDS: DOXYCYCLINE HYCLATE 100 MG in DEXTROSE 5% 100 ML IV SCH (10:33)
--- NOTE | 2023-02-08 14:08 | Communication Note ---
Date of Service: February 08, 2023 Ms. Adina Pappas is a 72 yr old female pt who was admitted for pancreatitis. GI consult by Dr. Arzola over the weekend. He recommends OP EUS and possible MRCP w already established outside GI group. Per [facility] hospitalist, the pt wants to change to [facility]. Chart reviewed. Our group will provide OP EUS. Order entered in [employer]. Our office will call the pt to arrange. OP EUS to be arranged as suggested by Dr. Armendariz. Please call Dr. Armendariz with any additional questions or concerns during the remainder of the hospital stay.
--- NOTE | 2023-02-08 17:53 | Discharge Summary ---
Date of Service February 08, 2023 Admission HPI Per Admitting Provider 72-year-old male with past medical history significant for hypothyroidism, prediabetes, intermittent asthma, hypertension, GERD, anxiety presents with abdominal discomfort and bull's-eye rash on the right flank region. Patient states she has fevers on and 30 January and last fever was on Wednesday. Fever was about 102 degrees. And she started up rash on the flank region on Wednesday. This seems to bull's-eye rash. She has noticed some blotches of rash in the legs. And today she also had abdominal pain. Patient says when she had COVID 3 weeks later she had pancreatitis. Second time also after some viral infection which she thinks COVID had again pancreatitis. So when she had abdominal pain today she was worried that she was having again pancreatitis and came to the ER. Currently abdominal pain is not bad. Denies any diarrhea or constipation or bloody or black stools. Normal bladder movements. Currently afebrile. Denies any chest pain or shortness of breath. Currently no nausea. Currently no he adaches. No earache or runny nose or sore throat. Appetite is good. Resting comfortably and hemodynamically stable Past medical history as mentioned above Past surgical history appendectomy for benign tumor as per patient Admission Exam Per Admitting Provider General- Not in distress Head- atraumatic Eyes- PERRL, EOMI, anicteric ENT- oropharynx clear Neck- supple, no JVD, no adenopathy, no thyromegaly; carotids +2/2, no bruits appreciated Lungs- clear to auscultation and percussion Heart- regular rhythm; no murmur, no gallop, no rub appreciated Abdomen- normal bowel sounds, soft,non tender no distension Extremities- no pretibial edema, no erythema seen Neuro- alert, oriented x 3; PERRL,Non focal Skin- bulls eye rash seen on right flank region. small erythematous botches seen on abdomen and legs Principal Diagnosis Pancreatitis Lyme disease Discharge Exam Constitutional WD/WN, vitals as above Respiratory normal respiratory effort, lungs clear to auscultation Cardiovascular Rate/Rhythm: regular rate and regular rhythm Vessels: normal peripheral pulses Extremities: no edema Gastrointestinal (Abdomen) normal bowel sounds, soft, nontender, no hepatosplenomegaly Musculoskeletal no cyanosis or clubbing, extremities motor strength 5/5 Neurologic no focal motor deficits Psychiatric A+Ox3, euthymic affect Discharge Data Allergies Allergy/AdvReac Type Severity Reaction Status Date / Time Sulfa (Sulfonamide Allergy Unknown Verified 09/23/22 09:49 Antibiotics) Tetracyclines Allergy Unknown Verified 09/23/22 09:49 Consultations 02/07/23 08:00 Consult Gastroenterology Routine Ordered Studies Laboratory Results WBC 8.52 K/ul (4.8-10.8) 02/08/23 07:35 RBC 3.78 M/uL (4.20-5.40) L 02/08/23 07:35 Hgb 13.0 g/dl (12.0-16.0) 02/08/23 07:35 Hct 37.9 % (37.0-47.0) 02/08/23 07:35 MCV 100.3 fL (80.0-100.0) H 02/08/23 07:35 MCH 34.4 pg (25.0-34.0) H 02/08/23 07:35 MCHC 34.3 g/dL (32.0-36.0) 02/08/23 07:35 RDW Std Deviation 44.7 fL (36.4-46.3) 02/08/23 07:35 RDW Coeff of Bi 12.1 % (11.5-14.5) 02/08/23 07:35 Plt Count 292 K/uL (130-400) 02/08/23 07:35 MPV 10.0 fL (9.4-12.4) 02/08/23 07:35 Immature Gran % (Auto) 0.4 % 02/08/23 07:35 Neut % (Auto) 62.5 % 02/08/23 07:35 Lymph % (Auto) 25.0 % 02/08/23 07:35 [place] % (Auto) 8.7 % 02/08/23 07:35 Eos % (Auto) 2.7 % 02/08/23 07:35 Baso % (Auto) 0.7 % 02/08/23 07:35 Neut # (Auto) 5.33 K/uL (1.40-6.50) 02/08/23 07:35 Lymph # (Auto) 2.13 K/uL (1.2-3.4) 02/08/23 07:35 [place] # (Auto) 0.74 K/uL (0.11-0.59) H 02/08/23 07:35 Eos # (Auto) 0.23 K/uL (0-0.50) 02/08/23 07:35 Baso # (Auto) 0.06 K/uL (0-0.2) 02/08/23 07:35 Immature Gran # (Auto) 0.03 K/uL (0.01-0.20) 02/08/23 07:35 Sodium 137 mmol/L (136-145) 02/08/23 07:35 Potassium 4.2 mmol/L (3.5-5.1) 02/08/23 07:35 Chloride 105 mmol/L (98-107) 02/08/23 07:35 Carbon Dioxide 25 mmol/L (21-32) 02/08/23 07:35 Anion Gap 7 (3-11) 02/08/23 07:35 BUN 9 mg/dl (6-23) 02/08/23 07:35 Creatinine 0.53 mg/dl (0.6-1.2) L 02/08/23 07:35 Est Cr Clr Drug Dosing 108.7 ml/min 02/08/23 07:35 Est GFR ( Amer) 110.7 ml/min 02/08/23 07:35 Est GFR (Non-Af Amer) 95.5 ml/min 02/08/23 07:35 BUN/Creatinine Ratio 17.0 (10-20) 02/08/23 07:35 Glucose 100 mg/dl (70-99(Fasting)) H 02/08/23 07:35 Estimat Average Glucose 114 mg/dl 02/07/23 05:31 Hemoglobin A1c 5.6 % (4.5-5.6) 02/07/23 05:31 Calcium 8.9 mg/dl (8.6-10.3) 02/08/23 07:35 Magnesium 1.9 mg/dl (1.7-2.4) 02/07/23 05:31 Total Bilirubin 0.5 mg/dl (0.2-1.0) 02/06/23 16:10 AST 27 U/L (13-39) 02/06/23 16:10 ALT 48 U/L (7-52) 02/06/23 16:10 Alkaline Phosphatase 100 U/L (34-104) 02/06/23 16:10 Troponin I High Sens 2.4 pg/ml (0-14) 02/06/23 16:10 Total Protein 8.1 gm/dl (6.0-8.3) 02/06/23 16:10 Albumin 4.6 gm/dl (3.4-5.0) 02/06/23 16:10 Globulin 3.5 gm/dl (2.5-4.0) 02/06/23 16:10 Albumin/Globulin Ratio 1.3 (0.9-2) 02/06/23 16:10 Triglycerides 103 mg/dl (0-150) 02/07/23 05:31 Lipase 1792 U/L (11-82) H 02/06/23 16:10 Urine Color Yellow 02/06/23 16:15 Urine Appearance Clear (Clear) 02/06/23 16:15 Urine pH 6.5 (4.5-7.5) 02/06/23 16:15 Ur Specific [place] 1.007 (1.000-1.030) 02/06/23 16:15 Urine Protein Negative (Negative) 02/06/23 16:15 Urine Glucose (UA) Negative (Negative) 02/06/23 16:15 Urine Ketones Negative (Negative) 02/06/23 16:15 Urine Blood 1+ (Negative) H 02/06/23 16:15 Urine Nitrite Negative (Negative) 02/06/23 16:15 Urine Bilirubin Negative (Negative) 02/06/23 16:15 Urine Urobilinogen Negative (Negative) 02/06/23 16:15 Ur Leukocyte Esterase 3+ (Negative) H 02/06/23 16:15 Urine WBC (Auto) 10-30 /hpf (0-5) H 02/06/23 16:15 Urine RBC (Auto) 0-4 /hpf (0-4) 02/06/23 16:15 U Hyaline Cast (Auto) 0 /lpf (0-5) 02/06/23 16:15 U Epithel Cells (Auto) >30 /lpf (0-5) H 02/06/23 16:15 Urine Bacteria (Auto) Negative (Negative) 02/06/23 16:15 Anaplasma Smear See Comment 02/06/23 16:10 Babesia Smear See Comment 02/06/23 16:10 Lyme Disease IgG Ab Positive (Negative) A 02/06/23 16:10 Lyme Disease IgM Ab Positive (Negative) A 02/06/23 16:10 SARS-CoV-2, RNA, NAAT NEGATIVE (NEGATIVE) 02/06/23 18:50 Impressions Abdomen/Pelvis CT 02/06/23 16:51 CT OF THE ABDOMEN AND PELVIS WITH CONTRAST CLINICAL HISTORY: Lower abdominal pain, fever. History of of pancreatitis. COMPARISON STUDY: None. TECHNIQUE: Following IV administration of 90 mL of Optiray, axial images of the abdomen and pelvis were obtained from the lung bases to the proximal femurs. Images were reviewed in the axial, sagittal, and coronal planes. IV contrast was administered without complication. Automated exposure control was utilized for the study. A dose lowering technique was utilized adhering to the principles of ALARA. CT DOSE: 1354.44 mGy.cm FINDINGS: Lung bases are unremarkable. No pneumatosis, free air or portal venous gas is present. There are no hepatic lesions. There is no biliary ductal dilatation. Possible hepatic steatosis. The spleen and adrenal glands are unremarkable. There are bilateral renal parapelvic cysts. Moderate peripancreatic fluid and stranding is noted. The gland is edematous. No CT evidence for gland necrosis. No peripancreatic fluid collections are present. Major vasculature is patent. The appendix is surgically absent. Colonic diverticulosis is noted. There is no evidence for acute diverticulitis. There is no lymphadenopathy. Caliber and wall thickness of small and large bowel are normal. IMPRESSION: 1. Moderate peripancreatic fluid and stranding consistent with acute pancreatitis. No evidence for gland necrosis. No peripancreatic fluid co llections. 2. No bowel obstruction. No bowel wall thickening. Colonic diverticulosis without evidence for acute diverticulitis. ACT 112: Negative or not required by law. Electronically signed by: Saravanan Breen M.D. 02/06/2023 6:53 PM Hospital Course (1) Acute pancreatitis: 72-year-old female presents with abdominal pain and erythema migrans and found to have acute pancreatitis and Lyme disease. Acute pancreatitis CT ABD/pelvis - Moderate peripancreatic fluid and stranding consistent with acute pancreatitis Lipase 7092 on presentation Third episode of acute pancreatitis as per patient. Had history of pancreatitis after COVID infection in the recent past. Twice as per patient. No history of gallstone, no history of alcohol intake. Triglycerides within normal limits. Treating conservatively with bowel rest and IVF, symptoms resolved Evaluated by GI, recommending outpatient EUS. Patient wishes to follow-up with [facility] GI as an outpatient, discussed with MUNDO Alfaro. Lyme disease Lyme screen positive As erythema migrans rash in the right flank region Started on Rocephin and doxycycline. Discharged on doxycycline to complete 10-day course. Possible UTI UTI ruled out, culture negative Hypertension BP controlled, continue metoprolol Prediabetes Hgb A1c 5.6 Hypothyroidism Continue levothyroxine Intermittent asthma No signs of acute exacerbation Continue home inhalers Anxiety on alprazolam as needed GERD Continue PPI Total Time Total Time Spent Total Time Spent (In Minutes): 40 Discharge Plan Discharge Items Patient Disposition: Home - Self-Care Reason For Visit: Abdominal Pain, Rash Discharge Diagnosis: Pancreatitis Lyme disease Activity: Resume your previous activity Non-emergency contact: Primary Care Provider Call non-emergency contact if: you have any medication questions, your symptoms worsen, your pain is not controlled and you have a fever Follow-up/Referrals: [facility] [Provider Group] Arminda Thornton MD [Primary Care Provider] - (Date & Time 02/12/2023 11:00 AM Provider Karolina Bianchi MD Department Family Medicine [facility] ) Diet: Heart Healthy Addtl Attending Provider Instructions: You came to the hospital for evaluation of abdominal pain and rash. You were found to have pancreatitis as well as Lyme disease. You were evaluated by gastroenterology for pancreatitis. Since this is a recurring issue, you will need to follow-up with them as an outpatient to have an EUS (endoscopic ultrasound) performed. This is being arranged with the [facility] GI team. They will be in contact with you regarding appointment. Follow a low-fat diet. For treatment of Lyme disease, you were treated with antibiotics. You will be discharged on doxycycline 100 mg twice daily for the next 8 days. It was a pleasure taking care of you. If you need to reach a member of the [facility] hospitalist team about any, please call [phone]. MUNDO Perez Pending Studies at Discharge: No Stand-Alone Forms: My [employer], Smoking Cessation Medications and DC Order Prescriptions: New doxycycline monohydrate 100 mg capsule 100 mg PO BID Qty: 16 0RF Continued fluticasone propion-salmeterol [Advair Diskus] 250-50 mcg/dose blister with device 1 inh inhalation BID Qty: 3 5RF albuterol sulfate 2.5 mg /3 mL (0.083 %) solution for nebulization 2.5 mg inhalation Q4H PRN (Reason: Other) omeprazole 40 mg capsule,delayed release(DR/EC) 40 mg PO DAILY ascorbate calcium (vitamin C) 500 mg tablet 500 mg PO DAILY zinc 50 mg tablet 50 mg PO DAILY cholecalciferol (vitamin D3) 50 mcg (2,000 unit) capsule 50 mcg PO DAILY calcium carbonate-mag oxide 333-167 mg tablet 1 tab PO DAILY lysine 1,000 mg tablet 500 mg PO DAILY levothyroxine 75 mcg capsule 75 mcg PO DAILY metoprolol tartrate 25 mg tablet 12.5 mg PO BID mecobalamin (vitamin B12) 1,000 mcg tablet,disintegrating 1,000 mcg sublingual DAILY Rx Instructions: place tablet under tongue and allow to dissolve for at least30 secs before swallowing albuterol sulfate [Ventolin HFA] 90 mcg/actuation HFA aerosol inhaler 2 puff INH Q6H PRN (Reason: shortness of breath or wheezing) Qty: 8.5 7RF alprazolam 0.25 mg Tablet 0.25 mg PO BID PRN (Reason: Other) montelukast 10 mg tablet 10 mg PO DAILY Discharge Orders: Discharge Order (Routine); Ordered 02/08/23 Ordered By: Delaney Mckeon/Other Patient Handouts: ED Diet, Low Fat, ED Lyme Disease Admission Data Admit Date/Time: 02/06/23 20:35 Attending Provider: Jn Anders Admit Provider: Tyler Vaughan Primary Care Provider: Arminda Thornton Other Providers: Tyler Vaughan ; Shobha Ram ; David Abdi ; Gemma Gillespie ; Kaity Savage ; Jimena Ortiz ; Jennifer Harvey ; Fer Hernandez ; Mike Tony ; Thierry Brian ; Zak Gallardo ; Thiago Butler ; Crystal Brock ; Michelle Tavera ; Susana Carlin ; Crystal Coombs ; Say Mattson ; Clyde Nichols ; Willy Tillman ; Merlene Chua ; Gabriela Armendariz Jr ; Fabiola Wan Other Interventions: Discharge Summary Assessment (RN) Last Done: 02/08/23 13:12 Supervising Physician Co-Signing Physician Notes Patient seen and examined at bedside. Discussed with above provider. Patient reports that her abdominal pain has resolved. Discussion was done with GI; patient to undergo outpatient EUS. Prescription given for doxycycline for Lyme disease. Patient to follow-up with her PCP
[2023-02-11 03:28] LABS: Babesia microti DNA Not Detected (Not Detected)
[2023-02-12 02:02] LABS: 18KDIGG Band REACTIVE; 23KDIGG Band REACTIVE; 23KDIGM Band REACTIVE; 28KDIGG Band NON-REACTIVE; 30KDIGG Band NON-REACTIVE; 39KDIGG Band REACTIVE; 39KDIGM Band NON-REACTIVE; 41KDIGG Band REACTIVE; 41KDIGM Band REACTIVE; 45KDIGG Band NON-REACTIVE; 58KDIGG Band REACTIVE; 66KDIGG Band NON-REACTIVE; 93KDIGG Band NON-REACTIVE; Lyme Antibodies, WB IgG POSITIVE (NEGATIVE); Lyme Antibodies, WB IgM POSITIVE (NEGATIVE)
== END 2023-02-08 13:55 | disposition home or self-care (01) | DRG 439 ==
LOC: ED 15:54 → SUATTDRO 20:35 → 3N 20:35

== ENCOUNTER 2024-02-26 11:45 | Inpatient (IN) ==
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
[2024-02-26 12:56] LABS: Basophils # (auto) 0.06 K/uL (0.00-0.20); Basophils % (auto) 0.7 %; Eosinophils % (auto) 2.5 %; Hematocrit (blood only) 43.5 % (37.0-47.0); Hemoglobin 14.9 g/dl (12.0-16.0); Immature Granulocytes # (auto) 0.02 K/uL (0.01-0.20); Immature Granulocytes % (auto) 0.2 %; Lymphocytes # (auto) 1.94 K/uL (1.20-3.40); Lymphocytes % (auto) 24.2 %; Mean Corpuscular Hemoglobin 33.7 pg (25.0-34.0); Mean Corpuscular Hgb Conc 34.3 g/dL (32.0-36.0); Mean Corpuscular Volume 98.4 fL (80.0-100.0); Mean Platelet Volume 11.1 fL (9.4-12.4); Monocytes # (auto) 0.84 K/uL (0.11-0.59); Monocytes % (auto) 10.5 %; Neutrophils # (auto) 4.95 K/uL (1.40-6.50); Neutrophils % (auto) 61.9 %; Platelet Count 267 K/uL (130-400); RDW Coefficient of Variation 12.1 % (11.5-14.5); RDW Standard Deviation 44.3 fL (36.4-46.3); Red Blood Count 4.42 M/uL (4.20-5.40); White Blood Count 8.01 K/ul (4.8-10.8)
--- NOTE | 2024-02-26 13:03 | XRay Report ---
XR chest 1V portable CLINICAL HISTORY: Hypertension COMPARISON STUDY: No previous studies for comparison. FINDINGS: Lung volumes are mildly diminished. Left basilar linear densities favor atelectasis. There is no pneumothorax or pleural effusion. Cardiac size is normal. Mediastinal contours are normal. Ther e is no evidence for pulmonary edema. IMPRESSION: No acute cardiopulmonary findings. ACT 112: Negative or not required by law. Electronically signed by: Saravanan Breen M.D. 02/26/2024 1:01 PM
[2024-02-26 13:13] LABS: Albumin Globulin Ratio 1.4 (0.9-2); Albumin Level 4.6 gm/dl (3.4-5.0); BUN Creatinine Ratio 20.3 (10-20); Bilirubin,Total 0.5 mg/dl (0.2-1.0); Calcium 9.5 mg/dl (8.6-10.3); Creatinine Clr Calc Pharmacy 89.7 ml/min; Est GFR (African American) 103.3 ml/min; Est GFR (Non-African American) 89.2 ml/min; Globulin 3.2 gm/dl (2.5-4.0); Potassium 4.6 mmol/L (3.5-5.1); Total Protein 7.8 gm/dl (6.0-8.3)
[2024-02-26 13:21] LABS: Troponin I High Sensitivity 3.9 pg/ml (0-14)
[2024-02-26] MEDS: LABETALOL HCL IV 5 MG/ML 20ML IV STA (13:30)
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
--- NOTE | 2024-02-26 15:21 | CT Scan Report ---
CT OF THE HEAD WITHOUT CONTRAST CLINICAL HISTORY: Hypertensive urgency. COMPARISON STUDY: No previous studies for comparison. CT DOSE: 703.85 mGy.cm TECHNIQUE: Helical axial images of the head were obtained without IV contrast. Automated exposure con trol was utilized for the study. A dose lowering technique was utilized adhering to the principles o f ALARA. FINDINGS: No acute intracranial hemorrhage, midline shift or mass effect is present. The ventricular system is unremarkable. The basal cisterns are patent. No extra-axial collections are present. There are no findings to suggest acute dural sinus thrombosis or acute territorial infarct. No significant calvarial abnormalities are present. Small amount of fluid within the left mastoid air cells is prese nt. IMPRESSION: No acute intracranial findings. ACT 112: Negative or not required by law. Electronically signed by: Saravanan Breen M.D. 02/26/2024 3:19 PM
[2024-02-26] MEDS ORDERED: ONDANSETRON INJ 2 MG/ML 2 ML VIAL IV PRN (16:36)
[2024-02-26 17:08] LABS: Thyroid Stimulating Hormone 4.7 uIu/ml (0.300-4.500)
[2024-02-26] MEDS: carvediloL 6.25 MG TAB PO SCH (17:38)
[2024-02-26] MEDS: hydroCHLOROthiazide 25 MG TAB PO STA (17:38)
[2024-02-26 17:45] LABS: T4 Free Thyroxine 0.77 ng/dl (0.61-1.60)
[2024-02-26] MEDS: busPIRone 5 MG TAB PO PRN (18:02)
[2024-02-26] MEDS: FLUTICASONE/VILANTEROL 200/25MCG 14 PUFFS/INHALER INH ONE (20:17)
[2024-02-26] MEDS: ACETAMINOPHEN 325 MG TAB PO PRN (22:27)
[2024-02-26 22:38] VITALS: O2SAT 94
[2024-02-27 04:15] VITALS: RESP 16; TEMP 97.9
[2024-02-27] MEDS: LEVOTHYROXINE SODIUM 75 MCG TABLET PO SCH (06:02)
[2024-02-27 06:40] LABS: Hematocrit (blood only) 41.4 % (37.0-47.0); Hemoglobin 14.2 g/dl (12.0-16.0); Mean Corpuscular Hemoglobin 33.9 pg (25.0-34.0); Mean Corpuscular Hgb Conc 34.3 g/dL (32.0-36.0); Mean Corpuscular Volume 98.8 fL (80.0-100.0); Mean Platelet Volume 10.9 fL (9.4-12.4); Platelet Count 245 K/uL (130-400); RDW Standard Deviation 44.1 fL (36.4-46.3); Red Blood Count 4.19 M/uL (4.20-5.40); White Blood Count 7.24 K/ul (4.8-10.8)
[2024-02-27 06:53] LABS: BUN Creatinine Ratio 20.6 (10-20); Calcium 9.2 mg/dl (8.6-10.3); Creatinine Clr Calc Pharmacy 90.9 ml/min; Est GFR (African American) 103.9 ml/min; Est GFR (Non-African American) 89.6 ml/min; Potassium 4.4 mmol/L (3.5-5.1)
--- NOTE | 2024-02-27 08:09 | Electrocardiogram Report ---
Test Reason : Blood Pressure : */* mmHG Vent. Rate : 81 BPM Atrial Rate : 81 BPM P-R Int : 180 ms QRS Dur : 84 ms QT Int : 388 ms P-R-T Axes : 50 -47 51 degrees QTcB Int : 450 ms Normal sinus rhythm Left anterior fascicular block Poor R wave progression, consider anterior CT vs. lead placement vs. LVH Abnormal ECG When compared with ECG of 06-Feb-2023 16:23, No significant change was found Confirmed by Juanjose Dunn ([id number]) on 02/27/2024 8:09:23 AM Referred By: REFERRED SELF Confirmed By: Juanjose Dunn
[2024-02-27] MEDS: amLODIPine BESYLATE 5 MG TAB PO SCH (08:21)
[2024-02-27] MEDS: MONTELUKAST SODIUM 10 MG TABLET PO SCH (08:21)
[2024-02-27] MEDS: FLUTICASONE/VILANTEROL 200/25MCG 14 PUFFS/INHALER INH SCH (08:21)
[2024-02-27] MEDS: CHOLECALCIFEROL 25 MCG (1000 UNITS) TAB PO SCH (08:21)
[2024-02-27] MEDS: PANTOprazole 40 MG TAB PO SCH (08:21)
[2024-02-27] MEDS ORDERED: MAGNESIUM OXIDE PO SCH (09:00)
[2024-02-27] MEDS ORDERED: CALCIUM CARBONATE PO SCH (09:00)
[2024-02-27 09:31] VITALS: PULSE 66
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
[2024-02-27] MEDS ORDERED: carvediloL 6.25 MG TAB PO SCH (11:00)
[2024-02-27] MEDS ORDERED: amLODIPine BESYLATE 5 MG TAB PO SCH (11:00)
[2024-02-27 11:24] VITALS: BP 171/101
--- NOTE | 2024-02-27 13:34 | Electrocardiogram Report ---
Test Reason : Blood Pressure : */* mmHG Vent. Rate : 63 BPM Atrial Rate : 63 BPM P-R Int : 186 ms QRS Dur : 90 ms QT Int : 472 ms P-R-T Axes : 24 -28 58 degrees QTcB Int : 483 ms Normal sinus rhythm Normal ECG When compared with ECG of 26-Feb-2024 12:02, prwp no longer present Confirmed by Juanjose Dunn ([id number]) on 02/27/2024 1:33:58 PM Referred By: REFERRED SELF Confirmed By: Juanjose Dunn
== END 2024-02-27 12:11 | disposition home or self-care (01) | DRG 305 ==
LOC: ED 11:45 → 2W 12:48 → SUATTDRO 14:14